=== PATIENT | female | born 1940 | race Caucasian/White ===

== ENCOUNTER 2022-03-08 19:06 | Emergency (ER) | payer MEDICARE, OTHER ==
[~2022-03-08] VITALS: Ht 167.6 cm; Wt 71.7 kg
--- NOTE | 2022-03-08 20:34 | NUR ---
bibpa from [facility] c/o lump on neck, need ct scan. patient vss, will continue to monitor.
--- NOTE | 2022-03-08 21:05 | NUR ---
CALLED DR. CARLOS, NO ANSWER
--- NOTE | 2022-03-08 21:06 | NUR ---
PAGED DR. CARLOS. NO ANSWER, [facility] [place]
--- NOTE | 2022-03-08 21:14 | NUR ---
CALLED DR. CARLOS NO ANSWER.
--- NOTE | 2022-03-08 21:44 | NUR ---
CALLYolande CARLOS NO ANSWER
--- NOTE | 2022-03-08 21:58 | NUR ---
REPORT GIVEN TO RHODA MAURICE
--- NOTE | 2022-03-08 22:00 | NUR ---
[facility] ETA 75-90 MINUTES
--- NOTE | 2022-03-08 22:47 | NUR ---
[facility] AT BEDSIDE FOR PT TRANSPORT BACK TO HER FACILITY. REPORT GIVEN TO [employer] ANALYST. PT IS IN STABLE CONDITION FOR TRANSPORT.
[2022-03-08 23:03] VITALS: BP 112/70
== END 2022-03-08 23:00 ==
LOC: ER 19:10
DX: R22.1 Localized swelling, mass and lump, neck (principal); J44.9 Chronic obstructive pulmonary disease, unspecified; F32.A Depression, unspecified; I10 Essential (primary) hypertension; D64.9 Anemia, unspecified
CPT/HCPCS: 70490-TC

== ENCOUNTER 2022-03-15 16:12 | Emergency (ER) | payer MEDICARE, OTHER ==
[~2022-03-15] VITALS: Ht 157.5 cm; Wt 68.0 kg
--- NOTE | 2022-03-15 16:18 | NUR ---
DOUGLAS PEREZ FROM [facility] SENT BY DR. CARLOS C/O NECK MASS X 1 WEEK. PT DENIES ANY PAIN OR SOB. PT PLACED IN BED, CONNECTED TO MONITOR. BREATHING EVEN AND UNLABORED. AAOX4. VSS. AWAITING MD ORDERS.
--- NOTE | 2022-03-15 16:19 | NUR ---
ATTEMPTED TO CALL DR. CARLOS REGARDING PT CLINICALS
--- NOTE | 2022-03-15 16:29 | NUR ---
DR MORENO AT BEDSIDE
--- NOTE | 2022-03-15 16:30 | NUR ---
Note undone in EDM - 03/15/22 at 1703 by JACKELYN Patient walked into the er c/o 5 days of dysuria, increased urinary frequency. She has not been on any antibiotics. She denies abdominal pain, fever, nausea, vomiting Pt also c/o psychiatric complaints. The patient states that over the last 10 months she has had fleeting suicidal ideations, paranoia, auditory hallucinations, and outbursts of anger have worsened and become more intense and frequent over the last 2 weeks. Pt states that she started seeing a psychiatrist last week but feels like she has not been helped. She states that is recent as yesterday she had thoughts of driving her car [place] a [place] to kill herself, she also states that she has cut her wrist in the past. Patient's paranoia is primarily believing that strangers is using her out to harm her. She denies alcohol, tobacco, illicit drug use. Pt ambulated to bed with steady gait, connected to the monitor. breathing even and unlabored. vss. awaiting md orders.
--- NOTE | 2022-03-15 16:32 | NUR ---
ESTABLISHED IV ACCESS 20G RIGHT HAND. BLOOD DRAWN AND SENT TO LAB.
[2022-03-15 17:15] LABS: BASOPHILS # (AUTO) 0.1 K/uL (0.0-0.2); EOSINOPHILS % (AUTO) 3.3 % (0.0-6.0); HEMATOCRIT 42 % (33-45); HEMOGLOBIN 13.5 g/dL (11.5-14.8); LYMPHOCYTES # (AUTO) 1.7 K/uL (0.8-4.8); LYMPHOCYTES % (AUTO) 26.7 % (20.0-44.0); MEAN CORPUSCULAR HGB CONC 33 g/dl (31.0-36.0); MEAN CORPUSCULAR VOLUME 96 fL (82-100); MONOCYTES # (AUTO) 0.5 K/uL (0.1-1.30); MONOCYTES % (AUTO) 8.3 % (2.0-12.0); NEUTROPHILS # (AUTO) 3.8 K/uL (1.8-8.9); NEUTROPHILS % (AUTO) 60.7 % (43.0-81.0); PLATELET COUNT (AUTO) 261 K/uL (150-450); RED BLOOD CELL COUNT(AUTO) 4.34 MIL/uL (4.0-5.2); WHITE BLOOD COUNT (AUTO) 6.3 K/uL (4.3-11.0)
[2022-03-15 17:38] LABS: CALCIUM, SERUM 9.1 mg/dL (8.5-10.1); CARBON DIOXIDE 25 mmol/L (21-32); CHLORIDE 108 mmol/L (98-107); CREATININE 1.4 mg/dL (0.6-1.3); GLUCOSE 100 mg/dL (74-106); POTASSIUM 3.7 mmol/L (3.5-5.1); SODIUM SERUM 139 mmol/L (136-145); UREA NITROGEN, BLOOD 28 mg/dL (7-18)
[2022-03-15 17:48] LABS: ALANINE AMINOTRANSFERASE 19 U/L (12-78); ALBUMIN 2.8 g/dL (3.4-5.0); ALKALINE PHOSPHATASE 67 U/L (46-116); ASPARTATE AMINOTRANSFERASE 19 U/L (15-37); BILIRUBIN,TOTAL 0.2 mg/dL (0.2-1.0); THYROID STIMULATING HORMONE 0.718 uIU/mL (0.358-3.74); TOTAL PROTEIN, SERUM 7.3 g/dL (6.4-8.2)
[2022-03-15] MEDS ORDERED: IV NS 0.9% 250 ML IV ONE (17:55)
[2022-03-15] MEDS ORDERED: CT SWABBABLE VALVE TRANS SET 1 EA INFUS.SET MC ONE (17:55)
[2022-03-15] MEDS ORDERED: IOHEXOL-300 100 ML VIAL IV ONE (17:55)
--- NOTE | 2022-03-15 18:15 | NUR ---
PT TAKEN TO CT VIA [facility]
--- NOTE | 2022-03-15 18:26 | NUR ---
BACK FROM CT
[2022-03-15] MEDS ORDERED: METR-147 PO (19:30)
[2022-03-15] MEDS ORDERED: CIPR500T5 PO (19:30)
--- NOTE | 2022-03-15 19:39 | NUR ---
[facility] CALLED FOR TRANSPORT. ETA 75-90 MINUTES.
--- NOTE | 2022-03-15 20:49 | NUR ---
AMBULANCE IN FACILITY, REPORT GIVEN. D/C INSTRUCTIONS GIVEN, IV REMOVED, LEFT IN STABLE CONDITION.
--- NOTE | 2022-03-15 20:49 | NUR ---
REPORT GIVEN TO RADHA DUONG SUP AT [facility]
[2022-03-15 21:51] VITALS: BP 122/61
== END 2022-03-15 21:52 ==
LOC: ER 16:14
DX: R22.1 Localized swelling, mass and lump, neck (principal); K57.32 Diverticulitis of large intestine without perforation or abscess without bleeding; J44.9 Chronic obstructive pulmonary disease, unspecified; F31.9 Bipolar disorder, unspecified; Z79.899 Other long term (current) drug therapy
CPT/HCPCS: 99285; 71260; 70491; 74177; 85025; 85652; 36415; 84439; 84443; 80053; 86140; 84481; J7050; Q9967

== ENCOUNTER 2023-06-26 02:04 | Inpatient (IN) | payer MEDICARE, OTHER ==
[~2023-06-26] VITALS: Ht 167.6 cm; Wt 54.4 kg
[~2023-06-26 02:04] MED LIST: CIPR500T5 PO; METR-147 PO
[2023-06-26 02:34] LABS: BASOPHILS # (AUTO) 0.1 K/uL (0.0-0.2); BASOPHILS % (AUTO) 0.6 % (0.0-2.0); EOSINOPHILS % (AUTO) 0.3 % (0.0-6.0); HEMATOCRIT 42 % (33-45); HEMOGLOBIN 13.9 g/dL (11.5-14.8); LYMPHOCYTES # (AUTO) 1.1 K/uL (0.8-4.8); LYMPHOCYTES % (AUTO) 11.6 % (20.0-44.0); MEAN CORPUSCULAR HEMOGLOBIN 31 PG (26.0-33.0); MEAN CORPUSCULAR HGB CONC 33 g/dl (31.0-36.0); MEAN CORPUSCULAR VOLUME 93 fL (82-100); MONOCYTES # (AUTO) 0.5 K/uL (0.1-1.30); MONOCYTES % (AUTO) 5.5 % (2.0-12.0); NEUTROPHILS # (AUTO) 7.8 K/uL (1.8-8.9); PLATELET COUNT (AUTO) 281 K/uL (150-450); RED BLOOD CELL COUNT(AUTO) 4.51 MIL/uL (4.0-5.2); RED CELL DISTRIBUTION WIDTH 15.4 % (11.5-15.0); WHITE BLOOD COUNT (AUTO) 9.5 K/uL (4.3-11.0)
[2023-06-26 02:42] LABS: CALCIUM, SERUM 8.9 mg/dL (8.5-10.1); CARBON DIOXIDE 24 mmol/L (21-32); CHLORIDE 110 mmol/L (98-107); GLUCOSE 125 mg/dL (74-106); POTASSIUM 4.2 mmol/L (3.5-5.1); SODIUM SERUM 143 mmol/L (136-145); UREA NITROGEN, BLOOD 21 mg/dL (7-18)
[2023-06-26 02:53] LABS: INR 0.97 (0.91-1.10); PROTHROMBIN TIME 10.3 SECS (9.2-11.1)
[2023-06-26 02:55] LABS: ALANINE AMINOTRANSFERASE 17 U/L (12-78); ALBUMIN 2.4 g/dL (3.4-5.0); ALKALINE PHOSPHATASE 77 U/L (46-116); ASPARTATE AMINOTRANSFERASE 10 U/L (15-37); BILIRUBIN,TOTAL 0.4 mg/dL (0.2-1.0); NT-PRO BNP 214 pg/mL (0-125); TOTAL PROTEIN, SERUM 6.8 g/dL (6.4-8.2)
[2023-06-26] MEDS ORDERED: ACETAMINOPHEN 325 MG TABLET PO PRN (04:30)
[2023-06-26] MEDS ORDERED: Z GUARD REMEDY 4 OZ OINT TP PRN (04:30)
[2023-06-26] MEDS ORDERED: MORPHINE SULFATE INJ 2 MG/ML DISP.SYRIN IV PRN ×2 (04:30→15:00)
[2023-06-26] MEDS ORDERED: MAGNESIUM HYDROXIDE 30 ML UDC PO PRN (04:30)
[2023-06-26] MEDS ORDERED: HYDROCODONE/APAP 10/325MG TABLET PO PRN (04:30)
[2023-06-26] MEDS ORDERED: ZOLPIDEM TARTRATE 5 MG TABLET PO PRN (04:30)
[2023-06-26 04:50] VITALS: BP 124/94; TEMP 99; O2SAT 95
[2023-06-26] MEDS: IV NS 0.9% 1,000 ML IV PRN (05:09)
[2023-06-26 08:00] VITALS: BP 141/93; TEMP 97.6; O2SAT 96
[2023-06-26] MEDS ORDERED: METO25TA6 PO (08:36)
[2023-06-26] MEDS ORDERED: MULT-225 PO (08:36)
[2023-06-26] MEDS ORDERED: CALC-494 PO (08:36)
[2023-06-26] MEDS ORDERED: NA P133E RC (08:36)
[2023-06-26] MEDS ORDERED: PYRI100T22 PO (08:36)
[2023-06-26] MEDS ORDERED: CRAN425C6 PO (08:36)
[2023-06-26] MEDS ORDERED: FERR325T24 PO (08:36)
[2023-06-26] MEDS ORDERED: CYAN500T9 PO (08:36)
[2023-06-26] MEDS ORDERED: BISA10SU11 RC (08:36)
[2023-06-26] MEDS ORDERED: AMIN30LI66 PO (08:36)
[2023-06-26] MEDS ORDERED: ACET325T53 PO (08:36)
[2023-06-26] MEDS ORDERED: OXYC5TAB3 PO (08:36)
[2023-06-26] MEDS ORDERED: DOCU100C36 PO (08:36)
[2023-06-26] MEDS ORDERED: MAGN400T8 PO (08:36)
[2023-06-26] MEDS ORDERED: LEVO75TA7 PO (08:36)
[2023-06-26] MEDS ORDERED: LIOT5TAB7 PO (08:36)
[2023-06-26] MEDS ORDERED: MAGN400O6 PO (08:36)
[2023-06-26 09:34] LABS: CHOLESTEROL 162 mg/dL (<200); HDL CHOLESTEROL 68 mg/dL (40-60); LDL 73 mg/dL (0-99); THYROID STIMULATING HORMONE < 0.007 uIU/mL (0.358-3.74); TRIGLYCERIDES 42 mg/dL (30-150)
[2023-06-26] MEDS ORDERED: VANCOMYCIN 1 GM VIAL ONE (10:07)
[2023-06-26] MEDS ORDERED: BUPIVACAINE 0.5 % PF 150 MG/30 ML VIAL ONE (10:07)
[2023-06-26] MEDS ORDERED: LABETALOL HCL IV 100MG VIAL ONE (13:23)
[2023-06-26 14:36] VITALS: BP 120/86; TEMP 97.8; O2SAT 98
[2023-06-26] MEDS: IV D5/0.45 NACL W/20 MEQ KCL 1L IV SCH (15:51)
[2023-06-26 16:00] VITALS: BP 124/84; TEMP 98.4; O2SAT 99
[2023-06-26 20:00] VITALS: BP 111/81; TEMP 98.8; O2SAT 95
[2023-06-26] MEDS: ANCEF 1 GM/50 ML D5W IV SCH (21:48)
[2023-06-27 07:15] LABS: BASOPHILS % (AUTO) 0.3 % (0.0-2.0); EOSINOPHILS % (AUTO) 0.3 % (0.0-6.0); HEMATOCRIT 35 % (33-45); HEMOGLOBIN 11.8 g/dL (11.5-14.8); LYMPHOCYTES # (AUTO) 1.7 K/uL (0.8-4.8); LYMPHOCYTES % (AUTO) 17.6 % (20.0-44.0); MEAN CORPUSCULAR HEMOGLOBIN 32 PG (26.0-33.0); MEAN CORPUSCULAR HGB CONC 34 g/dl (31.0-36.0); MEAN CORPUSCULAR VOLUME 94 fL (82-100); MONOCYTES # (AUTO) 0.9 K/uL (0.1-1.30); MONOCYTES % (AUTO) 9.6 % (2.0-12.0); NEUTROPHILS # (AUTO) 6.8 K/uL (1.8-8.9); NEUTROPHILS % (AUTO) 72.2 % (43.0-81.0); PLATELET COUNT (AUTO) 280 K/uL (150-450); RED BLOOD CELL COUNT(AUTO) 3.73 MIL/uL (4.0-5.2); RED CELL DISTRIBUTION WIDTH 15.6 % (11.5-15.0); WHITE BLOOD COUNT (AUTO) 9.4 K/uL (4.3-11.0)
[2023-06-27 07:58] LABS: CALCIUM, SERUM 8.2 mg/dL (8.5-10.1); CHLORIDE 109 mmol/L (98-107); CREATININE 1.2 mg/dL (0.6-1.3); GLUCOSE 118 mg/dL (74-106); MAGNESIUM 2.5 mg/dL (1.8-2.4); PHOSPHORUS 4.2 mg/dL (2.5-4.9); SODIUM SERUM 141 mmol/L (136-145); UREA NITROGEN, BLOOD 31 mg/dL (7-18)
[2023-06-27 08:00] VITALS: BP 126/90; TEMP 98.9; O2SAT 97
[2023-06-27 08:05] LABS: CARBON DIOXIDE 25 mmol/L (21-32)
[2023-06-27] MEDS: HYDROCODONE/APAP 10/325MG TABLET PO PRN (10:01)
[2023-06-27] MEDS ORDERED: CEFEPIME 2 GM in IV D5W 100 ML IV SCH (13:00)
[2023-06-27 14:11] LABS: *SPE A/G RATIO 0.8 (0.7-1.7); *SPE ALBUMIN 2.8 g/dL (2.9-4.4); *SPE ALPHA-1-GLOBULIN 0.3 g/dL (0.0-0.4); *SPE ALPHA-2-GLOBULIN 0.8 g/dL (0.4-1.0); *SPE BETA GLOBULIN 0.9 g/dL (0.7-1.3); *SPE GLOBULIN, TOTAL 3.4 g/dL (2.2-3.9); *SPE M-SPIKE Not Observed g/dL (Not Observed); *SPE PROTEIN TOTAL 6.2 g/dL (6.0-8.5); *SPEGAMMA GLOBULIN 1.4 g/dL (0.4-1.8)
[2023-06-27] MEDS: CEFEPIME 1 GM in IV D5W 50 ML IV SCH (14:25)
[2023-06-27 16:00] VITALS: BP 123/82; TEMP 98.2; O2SAT 96
[2023-06-27 20:00] VITALS: BP 137/89; TEMP 97.5; O2SAT 95
[2023-06-27] MEDS: IV 1/2NS 1000 ML 1,000 ML IV PRN (21:15)
[2023-06-28 07:00] VITALS: BP 124/77; TEMP 98.2; O2SAT 96
[2023-06-28 16:00] VITALS: BP 130/78; TEMP 98.1; O2SAT 94
[2023-06-28] MEDS: ONDANSETRON HCL/PF 4 MG/2 ML VIAL IVP PRN (18:04)
[2023-06-28 20:00] VITALS: BP 149/96; TEMP 97.9; O2SAT 97
[2023-06-28] MEDS: MAG HYDROX/AL HYDROX/SIMETH 30 ML UDC PO PRN (20:15)
[2023-06-29 07:00] VITALS: BP 136/81; TEMP 98.4; O2SAT 95
[2023-06-29] MEDS: PROCHLORPERAZINE MALEATE 10 MG TABLET PO PRN (13:32)
[2023-06-29 16:08] VITALS: BP 119/83; TEMP 98.4; O2SAT 94
[2023-06-29 20:00] VITALS: BP 124/75; TEMP 98.2; O2SAT 93
[2023-06-30 07:00] VITALS: BP 117/70; TEMP 98.4; O2SAT 94
[2023-06-30 16:00] VITALS: BP 143/83; TEMP 98.4; O2SAT 96
[2023-06-30 20:00] VITALS: BP 117/71; TEMP 98.4; O2SAT 94
[2023-06-30] MEDS: MUPIROCIN OINT 2% 22 GM TUBE NS SCH (20:23)
[2023-07-01 07:30] VITALS: BP 142/81; TEMP 98.2; O2SAT 96
[2023-07-01] MEDS ORDERED: SULF1TAB48 PO (12:25)
[2023-07-01] MEDS ORDERED: HEPA500014 IJ (12:25)
[2023-07-01] MEDS ORDERED: CIPR-262 PO (12:28)
[2023-07-01] MEDS ORDERED: METR500T PO (12:28)
[2023-07-01] MEDS: HEPARIN SODIUM, PORCINE 5000 UNITS/1 ML VIAL SQ SCH (12:30)
[2023-07-01 16:00] VITALS: BP 133/80; TEMP 98.6; O2SAT 95
== END 2023-07-01 19:56 | DRG 481 ==
LOC: ER 02:07 → MED 03:43
PROVIDERS: ATTEND Internal Medicine
PROC: 0QS606Z Reposition Right Upper Femur with Intramedullary Internal Fixation Device, Open Approach (ICD-10-PCS; principal; 2023-06-26)
DX: S72.141A Displaced intertrochanteric fracture of right femur, initial encounter for closed fracture (principal); E44.0 Moderate protein-calorie malnutrition; N30.00 Acute cystitis without hematuria; N32.1 Vesicointestinal fistula; Z68.1 Body mass index [BMI] 19.9 or less, adult; K57.20 Diverticulitis of large intestine with perforation and abscess without bleeding; J44.9 Chronic obstructive pulmonary disease, unspecified; W01.0XXA Fall on same level from slipping, tripping and stumbling without subsequent striking against object, initial encounter; Z85.850 Personal history of malignant neoplasm of thyroid; K27.9 Peptic ulcer, site unspecified, unspecified as acute or chronic, without hemorrhage or perforation; E88.09 Other disorders of plasma-protein metabolism, not elsewhere classified; F31.9 Bipolar disorder, unspecified; I10 Essential (primary) hypertension; R22.1 Localized swelling, mass and lump, neck; W19.XXXA Unspecified fall, initial encounter; Y93.9 Activity, unspecified; Y92.129 Unspecified place in nursing home as the place of occurrence of the external cause; D64.9 Anemia, unspecified; N21.0 Calculus in bladder
CPT/HCPCS: 36415; 71045-TC; 72192-TC; 73502; 80048-TC; 80053-TC; 80061-TC; 83735-TC; 83880; 84100-TC; 84155; 84165; 84439-TC; 84443-TC; 84484-TC; 85025-TC; 85610-TC; 87081-TC; 87086-TC; 93307-TC; 97110-TC; 97112-TC; 97530-TC; 97535-TC; A4223; A6209; A6403; C1713; G0378; J0461; J0690; J0692; J1885; J2405; J2704; J3370; J3480; J3490; J7030; J7040; J7050; J7060; Q0164

== ENCOUNTER 2023-07-06 13:57 | Inpatient (IN) | payer MEDICARE, OTHER ==
[~2023-07-06] VITALS: Ht 167.6 cm; Wt 62.1 kg
[~2023-07-06 13:57] MED LIST changes: +ACET325T53 PO; +AMIN30LI66 PO; +BISA10SU11 RC; +CALC-494 PO; +CIPR-262 PO; -CIPR500T5 PO; +CRAN425C6 PO; +CYAN500T9 PO; +DOCU100C36 PO; +FERR325T24 PO; +HEPA500014 IJ; +LEVO75TA7 PO; +LIOT5TAB7 PO; +MAGN400O6 PO; +MAGN400T8 PO; +METO25TA6 PO; -METR-147 PO; +METR500T PO; +MULT-225 PO; +NA P133E RC; +OXYC5TAB3 PO; +PYRI100T22 PO
[2023-07-06 14:28] LABS: BASOPHILS # (AUTO) 0.1 K/uL (0.0-0.2); BASOPHILS % (AUTO) 0.4 % (0.0-2.0); EOSINOPHILS % (AUTO) 0.2 % (0.0-6.0); HEMATOCRIT 30 % (33-45); HEMOGLOBIN 9.9 g/dL (11.5-14.8); LYMPHOCYTES % (AUTO) 5.4 % (20.0-44.0); MEAN CORPUSCULAR HEMOGLOBIN 32 PG (26.0-33.0); MEAN CORPUSCULAR HGB CONC 33 g/dl (31.0-36.0); MEAN CORPUSCULAR VOLUME 98 fL (82-100); MONOCYTES # (AUTO) 0.9 K/uL (0.1-1.30); MONOCYTES % (AUTO) 4.9 % (2.0-12.0); NEUTROPHILS % (AUTO) 89.1 % (43.0-81.0); PLATELET COUNT (AUTO) 470 K/uL (150-450); RED BLOOD CELL COUNT(AUTO) 3.09 MIL/uL (4.0-5.2); RED CELL DISTRIBUTION WIDTH 16.8 % (11.5-15.0); WHITE BLOOD COUNT (AUTO) 17.9 K/uL (4.3-11.0)
[2023-07-06 14:47] LABS: CALCIUM, SERUM 8.3 mg/dL (8.5-10.1); CARBON DIOXIDE 23 mmol/L (21-32); CHLORIDE 109 mmol/L (98-107); CREATININE 0.8 mg/dL (0.6-1.3); GLUCOSE 122 mg/dL (74-106); INR 1.08 (0.91-1.10); PARTIAL THROMBOPLASTIN TIME 27.2 SEC (24.3-34.3); POTASSIUM 4.2 mmol/L (3.5-5.1); PROTHROMBIN TIME 11.4 SECS (9.2-11.1); SODIUM SERUM 140 mmol/L (136-145); UREA NITROGEN, BLOOD 24 mg/dL (7-18)
[2023-07-06 14:53] LABS: LACTIC ACID 1.7 mmol/L (0.4-2.0)
[2023-07-06 15:00] LABS: ALANINE AMINOTRANSFERASE 27 U/L (12-78); ALBUMIN 1.6 g/dL (3.4-5.0); ALKALINE PHOSPHATASE 72 U/L (46-116); ASPARTATE AMINOTRANSFERASE 32 U/L (15-37); BILIRUBIN,DIRECT 0.2 mg/dL (0.0-0.2); BILIRUBIN,TOTAL 0.5 mg/dL (0.2-1.0); TOTAL PROTEIN, SERUM 5.4 g/dL (6.4-8.2)
[2023-07-06] MEDS ORDERED: POVI3780 TP (15:09)
[2023-07-06] MEDS ORDERED: HEPA500039 SQ (15:09)
[2023-07-06] MEDS ORDERED: ACET-868 PO (15:09)
[2023-07-06] MEDS ORDERED: ONDA-97 PO (15:09)
[2023-07-06] MEDS ORDERED: ASCO-340 PO (15:09)
[2023-07-06] MEDS ORDERED: MUPI22OI7 BNOSTRILS (15:09)
[2023-07-06] MEDS ORDERED: ZINC1CAP2 PO (15:09)
[2023-07-06] MEDS ORDERED: ALLA266C2 TP (15:09)
[2023-07-06 15:31] LABS: APPEARANCE,URINE Clear (CLEAR); BILIRUBIN,URINE SMALL (NEGATIVE); BLOOD, URINE Moderate Ery/uL (NEGATIVE); COLOR,URINE YELLOW (YELLOW); KETONES,URINE Negative (NEGATIVE); LEUKOCYTE ESTERASE ,URINE Large (NEGATIVE); NITRITE, URINE Positive (NEGATIVE); PROTEIN,URINE 30 mg/dl (NEGATIVE); UGLUCOSE Negative (NEGATIVE); UROBILINOGEN,URINE 0.2 EU/dL (0.2)
[2023-07-06 15:45] LABS: ADD URINE CULTURE YES; BACTERIA,URINE 2+ /HPF (None Seen); SQUAMOUS EPITHELIAL CELL,UR Few /HPF (None Seen); WBC,URINE TOO NUMEROUS TO COUN /HPF (0-3)
[2023-07-06 15:46] LABS: HYALINE CASTS, URINE Few /LPF (None Seen)
[2023-07-06] MEDS ORDERED: CEFTRIAXONE 1GM BAG (ER ONLY) 50 ML IV ONE (16:04)
[2023-07-06] MEDS: CEFTRIAXONE 1GM BAG (ER ONLY) 1 GM/50 ML PIGGYBACK IV ONE (16:10)
[2023-07-06] MEDS ORDERED: ONDANSETRON HCL/PF 4 MG/2 ML VIAL IVP PRN (19:00)
[2023-07-06] MEDS ORDERED: ACETAMINOPHEN 325 MG TABLET PO PRN ×2 (19:00)
[2023-07-06] MEDS ORDERED: Z GUARD REMEDY 4 OZ OINT TP PRN (19:00)
[2023-07-06] MEDS ORDERED: MAG HYDROX/AL HYDROX/SIMETH 30 ML UDC PO PRN (19:00)
[2023-07-06] MEDS ORDERED: MAGNESIUM HYDROXIDE 30 ML UDC PO PRN ×2 (19:00)
[2023-07-06] MEDS ORDERED: NA PHOS,M-B/NA PHOS,DI-BA 1 EA ENEMA RC PRN (19:00)
[2023-07-06] MEDS ORDERED: BISACODYL SUPP (10 MG) 10 MG/SUPP.RECT SUPP.RECT RC PRN (19:00)
[2023-07-06 20:00] VITALS: BP 119/73; TEMP 99.1; O2SAT 95
[2023-07-06] MEDS ORDERED: oxyCODONE IR immediate release 5 MG TABLET PO PRN (20:00)
[2023-07-06] MEDS: HEPARIN SODIUM, PORCINE 5000 UNITS/1 ML VIAL SQ SCH (20:53)
[2023-07-07] MEDS: IV NS 0.9% 1,000 ML IV PRN (02:33)
[2023-07-07 04:00] VITALS: BP 120/68; TEMP 98.6; O2SAT 94
[2023-07-07] MEDS ORDERED: PIPERACILLIN /TAZOBACTAM 3.375 G in IV D5W 50 ML IV SCH ×2 (05:00→22:00)
[2023-07-07 05:07] VITALS: BP 120/68; TEMP 98.6; O2SAT 94
[2023-07-07 06:30] LABS: BASOPHILS % (AUTO) 0.1 % (0.0-2.0); EOSINOPHILS # (AUTO) 0.1 K/uL (0.0-0.7); EOSINOPHILS % (AUTO) 0.4 % (0.0-6.0); HEMATOCRIT 27 % (33-45); HEMOGLOBIN 8.6 g/dL (11.5-14.8); LYMPHOCYTES # (AUTO) 1.3 K/uL (0.8-4.8); LYMPHOCYTES % (AUTO) 8.9 % (20.0-44.0); MEAN CORPUSCULAR HEMOGLOBIN 32 PG (26.0-33.0); MEAN CORPUSCULAR HGB CONC 32 g/dl (31.0-36.0); MEAN CORPUSCULAR VOLUME 100 fL (82-100); MONOCYTES # (AUTO) 0.9 K/uL (0.1-1.30); NEUTROPHILS # (AUTO) 12.2 K/uL (1.8-8.9); NEUTROPHILS % (AUTO) 84.6 % (43.0-81.0); PLATELET COUNT (AUTO) 398 K/uL (150-450); RED BLOOD CELL COUNT(AUTO) 2.69 MIL/uL (4.0-5.2); RED CELL DISTRIBUTION WIDTH 16.8 % (11.5-15.0); WHITE BLOOD COUNT (AUTO) 14.4 K/uL (4.3-11.0)
[2023-07-07 07:10] LABS: CREATININE 0.9 mg/dL (0.6-1.3); MAGNESIUM 2.1 mg/dL (1.8-2.4); PHOSPHORUS 2.4 mg/dL (2.5-4.9); POTASSIUM 4.1 mmol/L (3.5-5.1)
[2023-07-07] MEDS: PIPERACILLIN /TAZOBACTAM 3.375 G in IV D5W 50 ML IV SCH (08:13)
[2023-07-07] MEDS: LEVOTHYROXINE SODIUM 75 MCG TABLET PO ONE (09:30)
[2023-07-07] MEDS: LEVOTHYROXINE SODIUM 75 MCG TABLET PO SCH (09:42)
[2023-07-07] MEDS: LIOTHYRONINE SODIUM (5 MCG/TA 5 MCG TABLET PO SCH (09:43)
[2023-07-07] MEDS: FERROUS SULFATE (325 MG) 325 MG/TAB TABLET PO SCH (09:44)
[2023-07-07] MEDS: METOPROLOL TARTRATE 25 MG TABLET PO SCH (09:49)
[2023-07-07] MEDS: PIPERACILLIN /TAZOBACTAM 3.375 G in IV D5W 100 ML IV SCH (10:20)
[2023-07-07] MEDS: K PHOS NEUTRAL 250 MG TABLET PO ONE (15:30)
[2023-07-07] MEDS ORDERED: CEFTRIAXONE 1 G in IV D5W 50 ML IV SCH (16:00)
[2023-07-07] MEDS: DOCUSATE SODIUM 100 MG CAPSULE PO SCH (17:18)
[2023-07-07] MEDS: CYANOCOBALAMIN 500 MCG TABLET PO SCH (17:18)
[2023-07-07] MEDS: MAGNESIUM OXIDE 400 MG TABLET PO SCH (17:18)
[2023-07-07 20:00] VITALS: BP 126/78; TEMP 98.4; O2SAT 93
[2023-07-07 21:00] VITALS: BP 126/78; TEMP 98.4
[2023-07-08 05:00] VITALS: BP 99/55; TEMP 98.5; O2SAT 99
[2023-07-08 11:13] LABS: BASOPHILS % (AUTO) 0.1 % (0.0-2.0); EOSINOPHILS # (AUTO) 0.1 K/uL (0.0-0.7); EOSINOPHILS % (AUTO) 0.4 % (0.0-6.0); HEMATOCRIT 26 % (33-45); HEMOGLOBIN 8.4 g/dL (11.5-14.8); LYMPHOCYTES # (AUTO) 1.1 K/uL (0.8-4.8); LYMPHOCYTES % (AUTO) 8.4 % (20.0-44.0); MEAN CORPUSCULAR HEMOGLOBIN 33 PG (26.0-33.0); MEAN CORPUSCULAR HGB CONC 33 g/dl (31.0-36.0); MEAN CORPUSCULAR VOLUME 100 fL (82-100); MONOCYTES # (AUTO) 0.6 K/uL (0.1-1.30); NEUTROPHILS # (AUTO) 11.2 K/uL (1.8-8.9); NEUTROPHILS % (AUTO) 86.1 % (43.0-81.0); PLATELET COUNT (AUTO) 398 K/uL (150-450); RED BLOOD CELL COUNT(AUTO) 2.56 MIL/uL (4.0-5.2)
[2023-07-08 11:22] LABS: CALCIUM, SERUM 7.4 mg/dL (8.5-10.1); CREATININE 0.8 mg/dL (0.6-1.3); POTASSIUM 3.9 mmol/L (3.5-5.1)
[2023-07-08 16:00] VITALS: BP 130/79; TEMP 97.7; O2SAT 99
[2023-07-09] VITALS: BP 116/77; TEMP 98; O2SAT 95
[2023-07-09 07:03] LABS: CALCIUM, SERUM 7.2 mg/dL (8.5-10.1); CREATININE 0.8 mg/dL (0.6-1.3); PHOSPHORUS 3.2 mg/dL (2.5-4.9); POTASSIUM 3.5 mmol/L (3.5-5.1)
[2023-07-09 07:26] LABS: BASOPHILS % (AUTO) 0.3 % (0.0-2.0); EOSINOPHILS # (AUTO) 0.1 K/uL (0.0-0.7); EOSINOPHILS % (AUTO) 0.9 % (0.0-6.0); HEMATOCRIT 27 % (33-45); HEMOGLOBIN 8.9 g/dL (11.5-14.8); LYMPHOCYTES # (AUTO) 1.2 K/uL (0.8-4.8); LYMPHOCYTES % (AUTO) 10.8 % (20.0-44.0); MEAN CORPUSCULAR HEMOGLOBIN 33 PG (26.0-33.0); MEAN CORPUSCULAR HGB CONC 33 g/dl (31.0-36.0); MEAN CORPUSCULAR VOLUME 100 fL (82-100); MONOCYTES # (AUTO) 0.5 K/uL (0.1-1.30); MONOCYTES % (AUTO) 5.1 % (2.0-12.0); NEUTROPHILS # (AUTO) 8.9 K/uL (1.8-8.9); NEUTROPHILS % (AUTO) 82.9 % (43.0-81.0); PLATELET COUNT (AUTO) 416 K/uL (150-450); RED BLOOD CELL COUNT(AUTO) 2.69 MIL/uL (4.0-5.2); RED CELL DISTRIBUTION WIDTH 21.6 % (11.5-15.0); WHITE BLOOD COUNT (AUTO) 10.7 K/uL (4.3-11.0)
[2023-07-09 08:15] VITALS: BP 123/75; TEMP 98.5; O2SAT 99
[2023-07-09 16:02] VITALS: BP 130/79; TEMP 97.7; O2SAT 99
[2023-07-10] VITALS: BP 119/49; TEMP 96.6; O2SAT 95
[2023-07-10 06:18] LABS: BASOPHILS % (AUTO) 0.2 % (0.0-2.0); EOSINOPHILS % (AUTO) 0.1 % (0.0-6.0); HEMATOCRIT 27 % (33-45); HEMOGLOBIN 8.9 g/dL (11.5-14.8); LYMPHOCYTES # (AUTO) 0.7 K/uL (0.8-4.8); LYMPHOCYTES % (AUTO) 5.6 % (20.0-44.0); MEAN CORPUSCULAR HEMOGLOBIN 33 PG (26.0-33.0); MEAN CORPUSCULAR HGB CONC 33 g/dl (31.0-36.0); MEAN CORPUSCULAR VOLUME 100 fL (82-100); MONOCYTES # (AUTO) 0.6 K/uL (0.1-1.30); MONOCYTES % (AUTO) 4.5 % (2.0-12.0); NEUTROPHILS # (AUTO) 11.4 K/uL (1.8-8.9); NEUTROPHILS % (AUTO) 89.6 % (43.0-81.0); PLATELET COUNT (AUTO) 438 K/uL (150-450); RED BLOOD CELL COUNT(AUTO) 2.73 MIL/uL (4.0-5.2); RED CELL DISTRIBUTION WIDTH 19.3 % (11.5-15.0); WHITE BLOOD COUNT (AUTO) 12.7 K/uL (4.3-11.0)
[2023-07-10 06:39] LABS: CREATININE 0.9 mg/dL (0.6-1.3); PHOSPHORUS 3.2 mg/dL (2.5-4.9); POTASSIUM 3.4 mmol/L (3.5-5.1)
[2023-07-10 06:52] LABS: MAGNESIUM 1.9 mg/dL (1.8-2.4)
[2023-07-10 08:32] VITALS: BP 126/78; TEMP 98.4
[2023-07-10] MEDS: POTASSIUM CHLORIDE 20 MEQ TAB.PRT.SR PO ONE (09:38)
[2023-07-10 17:54] VITALS: BP 123/75; TEMP 98.5; O2SAT 99
[2023-07-10 20:00] VITALS: BP 132/78; TEMP 98.5; O2SAT 95
[2023-07-11 04:00] VITALS: BP_SYST 120; BP_SYST 132; BP_DIAS 75; BP_DIAS 78; TEMP 98; O2SAT 96
[2023-07-11 06:45] LABS: BASOPHILS % (AUTO) 0.4 % (0.0-2.0); EOSINOPHILS % (AUTO) 0.4 % (0.0-6.0); HEMATOCRIT 26 % (33-45); HEMOGLOBIN 8.6 g/dL (11.5-14.8); LYMPHOCYTES % (AUTO) 9.4 % (20.0-44.0); MEAN CORPUSCULAR HEMOGLOBIN 33 PG (26.0-33.0); MEAN CORPUSCULAR HGB CONC 34 g/dl (31.0-36.0); MEAN CORPUSCULAR VOLUME 100 fL (82-100); MONOCYTES # (AUTO) 0.5 K/uL (0.1-1.30); MONOCYTES % (AUTO) 4.8 % (2.0-12.0); NEUTROPHILS # (AUTO) 9.2 K/uL (1.8-8.9); PLATELET COUNT (AUTO) 421 K/uL (150-450); RED BLOOD CELL COUNT(AUTO) 2.57 MIL/uL (4.0-5.2); RED CELL DISTRIBUTION WIDTH 21.1 % (11.5-15.0); WHITE BLOOD COUNT (AUTO) 10.8 K/uL (4.3-11.0)
[2023-07-11 07:01] LABS: CALCIUM, SERUM 7.6 mg/dL (8.5-10.1); CARBON DIOXIDE 24 mmol/L (21-32); CHLORIDE 111 mmol/L (98-107); CREATININE 0.8 mg/dL (0.6-1.3); GLUCOSE 90 mg/dL (74-106); MAGNESIUM 2.1 mg/dL (1.8-2.4); PHOSPHORUS 2.6 mg/dL (2.5-4.9); POTASSIUM 3.1 mmol/L (3.5-5.1); SODIUM SERUM 143 mmol/L (136-145); UREA NITROGEN, BLOOD 13 mg/dL (7-18)
[2023-07-11 08:00] VITALS: BP 125/76; TEMP 96; O2SAT 96
[2023-07-11 08:34] VITALS: BP 125/75
[2023-07-11] MEDS: POTASSIUM CHLORIDE 20 MEQ TAB.PRT.SR PO SCH (10:34)
== END 2023-07-11 16:19 | DRG 689 ==
LOC: ER 14:00 → TELE-TD 17:42 → TELE1 17:58 → MEDSG1 19:42
PROVIDERS: ADMIT Internal Medicine; ATTEND Internal Medicine
DX: N39.0 Urinary tract infection, site not specified (principal); E43 Unspecified severe protein-calorie malnutrition; G93.41 Metabolic encephalopathy; N32.1 Vesicointestinal fistula; K57.32 Diverticulitis of large intestine without perforation or abscess without bleeding; K44.9 Diaphragmatic hernia without obstruction or gangrene; J44.9 Chronic obstructive pulmonary disease, unspecified; Z87.11 Personal history of peptic ulcer disease; D63.8 Anemia in other chronic diseases classified elsewhere; E03.9 Hypothyroidism, unspecified; E88.09 Other disorders of plasma-protein metabolism, not elsewhere classified; I10 Essential (primary) hypertension; Z87.440 Personal history of urinary (tract) infections; D72.829 Elevated white blood cell count, unspecified; B96.20 Unspecified Escherichia coli [E. coli] as the cause of diseases classified elsewhere; Z68.22 Body mass index [BMI] 22.0-22.9, adult; F31.9 Bipolar disorder, unspecified; Z98.890 Other specified postprocedural states
CPT/HCPCS: 36415; 71045-TC; 80048-TC; 80076-TC; 81001; 83605-TC; 83735-TC; 84100-TC; 84484-TC; 85025-TC; 85730-TC; 87040-TC; 87081-TC; 87086-TC; G0378; J0696; J1644; J2543; J7030; J7060

== ENCOUNTER 2023-07-24 17:25 | Inpatient (IN) | payer MEDICARE, OTHER ==
[~2023-07-24] VITALS: Ht 167.6 cm; Wt 51.7 kg
[~2023-07-24 17:25] MED LIST changes: +ACET-868 PO; +ALLA266C2 TP; +ASCO-340 PO; -CIPR-262 PO; -HEPA500014 IJ; +HEPA500039 SQ; -METR500T PO; +MUPI22OI7 BNOSTRILS; +ONDA-97 PO; +POVI3780 TP; -PYRI100T22 PO; +ZINC1CAP2 PO
[2023-07-24] MEDS ORDERED: COLLAGEN POWDER TP (18:16)
[2023-07-24] MEDS ORDERED: FURO-144 PO (18:16)
[2023-07-24 18:18] LABS: BASOPHILS # (AUTO) 0.1 K/uL (0.0-0.2); BASOPHILS % (AUTO) 1.2 % (0.0-2.0); EOSINOPHILS # (AUTO) 0.1 K/uL (0.0-0.7); EOSINOPHILS % (AUTO) 1.8 % (0.0-6.0); HEMATOCRIT 36 % (33-45); HEMOGLOBIN 11.6 g/dL (11.5-14.8); LYMPHOCYTES # (AUTO) 1.1 K/uL (0.8-4.8); LYMPHOCYTES % (AUTO) 21.4 % (20.0-44.0); MEAN CORPUSCULAR HEMOGLOBIN 33 PG (26.0-33.0); MEAN CORPUSCULAR HGB CONC 32 g/dl (31.0-36.0); MEAN CORPUSCULAR VOLUME 103 fL (82-100); MONOCYTES # (AUTO) 0.5 K/uL (0.1-1.30); MONOCYTES % (AUTO) 9.4 % (2.0-12.0); NEUTROPHILS # (AUTO) 3.4 K/uL (1.8-8.9); NEUTROPHILS % (AUTO) 66.2 % (43.0-81.0); PLATELET COUNT (AUTO) 372 K/uL (150-450); RED BLOOD CELL COUNT(AUTO) 3.47 MIL/uL (4.0-5.2); RED CELL DISTRIBUTION WIDTH 22.3 % (11.5-15.0); WHITE BLOOD COUNT (AUTO) 5.1 K/uL (4.3-11.0)
[2023-07-24 18:30] LABS: CALCIUM, SERUM 8.5 mg/dL (8.5-10.1); CARBON DIOXIDE 32 mmol/L (21-32); CHLORIDE 106 mmol/L (98-107); CREATININE 0.6 mg/dL (0.6-1.3); GLUCOSE 102 mg/dL (74-106); POTASSIUM 3.5 mmol/L (3.5-5.1); SODIUM SERUM 142 mmol/L (136-145); UREA NITROGEN, BLOOD 13 mg/dL (7-18)
[2023-07-24] MEDS: IV NS 0.9% 1,000 ML BAG IV ONE (18:31)
[2023-07-24 18:33] LABS: INR 1.03 (0.91-1.10); PROTHROMBIN TIME 10.6 SECS (9.2-11.1)
[2023-07-24 18:35] LABS: PARTIAL THROMBOPLASTIN TIME 19.8 SEC (24.3-34.3)
[2023-07-24 18:36] LABS: ALANINE AMINOTRANSFERASE 19 U/L (12-78); ALBUMIN 1.9 g/dL (3.4-5.0); ALKALINE PHOSPHATASE 170 U/L (46-116); ASPARTATE AMINOTRANSFERASE 43 U/L (15-37); BILIRUBIN,DIRECT 0.1 mg/dL (0.0-0.2); BILIRUBIN,TOTAL 0.8 mg/dL (0.2-1.0); LIPASE 45 U/L (16-77); TOTAL PROTEIN, SERUM 6.2 g/dL (6.4-8.2)
[2023-07-24 21:45] VITALS: BP 120/74; TEMP 98.2; O2SAT 96
[2023-07-24] MEDS ORDERED: ONDANSETRON HCL/PF 4 MG/2 ML VIAL IVP PRN (23:30)
[2023-07-24] MEDS ORDERED: MAGNESIUM HYDROXIDE 30 ML UDC PO PRN (23:30)
[2023-07-24] MEDS ORDERED: MAG HYDROX/AL HYDROX/SIMETH 30 ML UDC PO PRN (23:30)
[2023-07-24] MEDS ORDERED: Z GUARD REMEDY 4 OZ OINT TP PRN (23:30)
[2023-07-24] MEDS ORDERED: ACETAMINOPHEN 325 MG TABLET PO PRN (23:30)
[2023-07-24] MEDS ORDERED: ZOLPIDEM TARTRATE 5 MG TABLET PO PRN (23:30)
[2023-07-25] MEDS: IV D5/0.45 NACL 1,000 ML IV PRN (00:11)
[2023-07-25] MEDS: ENOXAPARIN SODIUM 40 MG/0.4 ML DISP.SYRIN SQ SCH (00:12)
[2023-07-25 06:52] LABS: EOSINOPHILS # (AUTO) 0.3 K/uL (0.0-0.7); EOSINOPHILS % (AUTO) 6.4 % (0.0-6.0); HEMATOCRIT 29 % (33-45); HEMOGLOBIN 9.6 g/dL (11.5-14.8); LYMPHOCYTES # (AUTO) 1.1 K/uL (0.8-4.8); LYMPHOCYTES % (AUTO) 24.5 % (20.0-44.0); MEAN CORPUSCULAR HEMOGLOBIN 35 PG (26.0-33.0); MEAN CORPUSCULAR HGB CONC 33 g/dl (31.0-36.0); MEAN CORPUSCULAR VOLUME 104 fL (82-100); MONOCYTES # (AUTO) 0.6 K/uL (0.1-1.30); MONOCYTES % (AUTO) 13.6 % (2.0-12.0); NEUTROPHILS # (AUTO) 2.5 K/uL (1.8-8.9); NEUTROPHILS % (AUTO) 55.5 % (43.0-81.0); PLATELET COUNT (AUTO) 295 K/uL (150-450); RED BLOOD CELL COUNT(AUTO) 2.78 MIL/uL (4.0-5.2); RED CELL DISTRIBUTION WIDTH 22.3 % (11.5-15.0); WHITE BLOOD COUNT (AUTO) 4.5 K/uL (4.3-11.0)
[2023-07-25 06:58] LABS: INR 1.13 (0.91-1.10); PROTHROMBIN TIME 11.9 SECS (9.2-11.1)
[2023-07-25 07:16] LABS: BILIRUBIN,DIRECT 0.2 mg/dL (0.0-0.2); BILIRUBIN,TOTAL 0.5 mg/dL (0.2-1.0); CALCIUM, SERUM 7.6 mg/dL (8.5-10.1); CREATININE 0.6 mg/dL (0.6-1.3); MAGNESIUM 2.1 mg/dL (1.8-2.4); PHOSPHORUS 2.3 mg/dL (2.5-4.9)
[2023-07-25 07:30] LABS: ALBUMIN 1.4 g/dL (3.4-5.0); THYROID STIMULATING HORMONE 3.05 uIU/mL (0.358-3.74)
[2023-07-25 07:31] LABS: POTASSIUM 2.7 mmol/L (3.5-5.1)
[2023-07-25] MEDS: PANTOPRAZOLE 40 MG VIAL IV SCH (08:14)
[2023-07-25 09:18] LABS: BASOPHILS # (AUTO) 0.1 K/uL (0.0-0.2); BASOPHILS % (AUTO) 1.3 % (0.0-2.0); EOSINOPHILS # (AUTO) 0.1 K/uL (0.0-0.7); EOSINOPHILS % (AUTO) 3.1 % (0.0-6.0); HEMATOCRIT 31 % (33-45); LYMPHOCYTES % (AUTO) 25.8 % (20.0-44.0); MEAN CORPUSCULAR HEMOGLOBIN 34 PG (26.0-33.0); MEAN CORPUSCULAR HGB CONC 32 g/dl (31.0-36.0); MEAN CORPUSCULAR VOLUME 104 fL (82-100); MONOCYTES # (AUTO) 0.4 K/uL (0.1-1.30); MONOCYTES % (AUTO) 11.1 % (2.0-12.0); NEUTROPHILS # (AUTO) 2.4 K/uL (1.8-8.9); NEUTROPHILS % (AUTO) 58.7 % (43.0-81.0); PLATELET COUNT (AUTO) 294 K/uL (150-450); RED BLOOD CELL COUNT(AUTO) 2.94 MIL/uL (4.0-5.2); RED CELL DISTRIBUTION WIDTH 22.4 % (11.5-15.0)
[2023-07-25 09:35] LABS: BILIRUBIN,TOTAL 0.5 mg/dL (0.2-1.0); CALCIUM, SERUM 7.9 mg/dL (8.5-10.1); CREATININE 0.6 mg/dL (0.6-1.3)
[2023-07-25 09:50] LABS: ALBUMIN 1.4 g/dL (3.4-5.0); POTASSIUM 2.6 mmol/L (3.5-5.1)
[2023-07-25] MEDS: POTASSIUM CL. PREMIX PERIPHER. 50 ML IV SCH (10:31)
[2023-07-25] MEDS: K PHOS NEUTRAL 250 MG TABLET PO ONE (15:30)
[2023-07-25 16:00] VITALS: BP 122/85; TEMP 98.2; O2SAT 96
[2023-07-25] MEDS: CALCIUM CARBONATE 500 MG TAB.CHEW PO SCH (16:34)
[2023-07-25] MEDS: FERROUS SULFATE (325 MG) 325 MG/TAB TABLET PO SCH (16:34)
[2023-07-25] MEDS: PROSOURCE / PROSTAT (PYXIS) 30 ML UDC PO SCH (16:39)
[2023-07-25] MEDS: DOCUSATE SODIUM 100 MG CAPSULE PO SCH (17:00)
[2023-07-25] MEDS: MULTIVITAMINS,THERAGRAN 1 UDTAB TABLET PO SCH (17:01)
[2023-07-25] MEDS: ASCORBIC ACID 500 MG TABLET PO SCH (17:01)
[2023-07-25] MEDS: CYANOCOBALAMIN 500 MCG TABLET PO SCH (17:01)
[2023-07-25] MEDS ORDERED: Medication Not On Formulary EA (Cranberry Extract (Cranberry) 425 MG) PO SCH (18:00)
[2023-07-25 20:13] VITALS: BP 139/97; TEMP 98.2; O2SAT 82
[2023-07-25 20:15] VITALS: BP 142/91; TEMP 97.5; O2SAT 97
[2023-07-25] MEDS: Sodium Phosphate 15 MMOL in IV NS 0.9% 245 ML IV SCH (20:46)
[2023-07-25] MEDS: MIRTAZAPINE 15 MG TABLET PO SCH (22:00)
[2023-07-26 06:53] LABS: BASOPHILS % (AUTO) 0.9 % (0.0-2.0); EOSINOPHILS # (AUTO) 0.1 K/uL (0.0-0.7); EOSINOPHILS % (AUTO) 3.6 % (0.0-6.0); HEMATOCRIT 29 % (33-45); HEMOGLOBIN 9.7 g/dL (11.5-14.8); LYMPHOCYTES # (AUTO) 0.9 K/uL (0.8-4.8); LYMPHOCYTES % (AUTO) 25.5 % (20.0-44.0); MEAN CORPUSCULAR HEMOGLOBIN 35 PG (26.0-33.0); MEAN CORPUSCULAR HGB CONC 33 g/dl (31.0-36.0); MEAN CORPUSCULAR VOLUME 104 fL (82-100); MONOCYTES # (AUTO) 0.4 K/uL (0.1-1.30); MONOCYTES % (AUTO) 10.5 % (2.0-12.0); NEUTROPHILS # (AUTO) 2.2 K/uL (1.8-8.9); NEUTROPHILS % (AUTO) 59.5 % (43.0-81.0); PLATELET COUNT (AUTO) 286 K/uL (150-450); WHITE BLOOD COUNT (AUTO) 3.7 K/uL (4.3-11.0)
[2023-07-26 07:20] LABS: CALCIUM, SERUM 7.5 mg/dL (8.5-10.1); CARBON DIOXIDE 27 mmol/L (21-32); CHLORIDE 109 mmol/L (98-107); CREATININE 0.5 mg/dL (0.6-1.3); GLUCOSE 101 mg/dL (74-106); MAGNESIUM 1.8 mg/dL (1.8-2.4); PHOSPHORUS 2.7 mg/dL (2.5-4.9); POTASSIUM 3.3 mmol/L (3.5-5.1); SODIUM SERUM 141 mmol/L (136-145); UREA NITROGEN, BLOOD 8 mg/dL (7-18)
[2023-07-26] MEDS: LEVOTHYROXINE SODIUM 75 MCG TABLET PO SCH (07:30)
[2023-07-26 08:00] VITALS: BP 130/75; TEMP 98.3; O2SAT 99
[2023-07-26] MEDS: METOPROLOL TARTRATE 25 MG TABLET PO SCH (09:00)
[2023-07-26] MEDS: PANTOPRAZOLE 40 MG TABLET.DR PO SCH (09:00)
[2023-07-26] MEDS: LIOTHYRONINE SODIUM (5 MCG/TA 5 MCG TABLET PO SCH (09:00)
[2023-07-26] MEDS: POTASSIUM CL. PREMIX PERIPHER. 50 ML IV SCH (09:34)
[2023-07-26 16:00] VITALS: BP 126/79; TEMP 97.7; O2SAT 93
[2023-07-26 20:00] VITALS: BP 133/91; TEMP 97.7; O2SAT 95
[2023-07-27 07:02] LABS: BASOPHILS % (AUTO) 0.8 % (0.0-2.0); EOSINOPHILS # (AUTO) 0.1 K/uL (0.0-0.7); HEMATOCRIT 32 % (33-45); HEMOGLOBIN 10.6 g/dL (11.5-14.8); LYMPHOCYTES % (AUTO) 22.6 % (20.0-44.0); MEAN CORPUSCULAR HEMOGLOBIN 35 PG (26.0-33.0); MEAN CORPUSCULAR HGB CONC 34 g/dl (31.0-36.0); MEAN CORPUSCULAR VOLUME 104 fL (82-100); MONOCYTES # (AUTO) 0.5 K/uL (0.1-1.30); NEUTROPHILS # (AUTO) 2.9 K/uL (1.8-8.9); NEUTROPHILS % (AUTO) 63.6 % (43.0-81.0); PLATELET COUNT (AUTO) 313 K/uL (150-450); RED BLOOD CELL COUNT(AUTO) 3.06 MIL/uL (4.0-5.2); RED CELL DISTRIBUTION WIDTH 21.6 % (11.5-15.0); WHITE BLOOD COUNT (AUTO) 4.6 K/uL (4.3-11.0)
[2023-07-27 07:24] LABS: CALCIUM, SERUM 7.7 mg/dL (8.5-10.1); CREATININE 0.6 mg/dL (0.6-1.3); POTASSIUM 3.6 mmol/L (3.5-5.1)
[2023-07-27 08:00] VITALS: BP 130/88; TEMP 98; O2SAT 99
[2023-07-27] MEDS: NEOMY SULF/BACITRAC ZN/POLY 15 GM TUBE TP SCH (10:11)
[2023-07-27] MEDS ORDERED: ANESTHESIA TRAY IN PYXIS 1 EA TRAY MC ONE (11:29)
[2023-07-27 16:00] VITALS: BP 126/82; TEMP 98.2; O2SAT 97
[2023-07-27 20:00] VITALS: BP 126/81; TEMP 97.2; O2SAT 98
[2023-07-27 20:15] VITALS: BP 126/81; TEMP 97.2; O2SAT 98
[2023-07-28 06:47] LABS: BASOPHILS % (AUTO) 0.8 % (0.0-2.0); EOSINOPHILS # (AUTO) 0.1 K/uL (0.0-0.7); EOSINOPHILS % (AUTO) 3.3 % (0.0-6.0); HEMATOCRIT 33 % (33-45); HEMOGLOBIN 10.9 g/dL (11.5-14.8); LYMPHOCYTES % (AUTO) 23.1 % (20.0-44.0); MEAN CORPUSCULAR HEMOGLOBIN 34 PG (26.0-33.0); MEAN CORPUSCULAR HGB CONC 33 g/dl (31.0-36.0); MEAN CORPUSCULAR VOLUME 104 fL (82-100); MONOCYTES # (AUTO) 0.5 K/uL (0.1-1.30); MONOCYTES % (AUTO) 11.6 % (2.0-12.0); NEUTROPHILS # (AUTO) 2.6 K/uL (1.8-8.9); NEUTROPHILS % (AUTO) 61.2 % (43.0-81.0); PLATELET COUNT (AUTO) 327 K/uL (150-450); RED BLOOD CELL COUNT(AUTO) 3.17 MIL/uL (4.0-5.2); RED CELL DISTRIBUTION WIDTH 21.4 % (11.5-15.0); WHITE BLOOD COUNT (AUTO) 4.3 K/uL (4.3-11.0)
[2023-07-28 06:59] LABS: CALCIUM, SERUM 7.7 mg/dL (8.5-10.1); CREATININE 0.6 mg/dL (0.6-1.3); POTASSIUM 3.1 mmol/L (3.5-5.1)
[2023-07-28 08:00] VITALS: BP 129/98; TEMP 97.3; O2SAT 99
[2023-07-28] MEDS: POTASSIUM CL. PREMIX PERIPHER. 50 ML IV SCH (09:28)
[2023-07-28 16:00] VITALS: BP 137/93; TEMP 97.5; O2SAT 98
[2023-07-28 20:18] VITALS: BP 112/88; TEMP 98.1; O2SAT 94
[2023-07-28 20:35] VITALS: BP 112/88; TEMP 98.1; O2SAT 94
[2023-07-29 06:51] LABS: BASOPHILS % (AUTO) 0.4 % (0.0-2.0); EOSINOPHILS % (AUTO) 0.1 % (0.0-6.0); HEMATOCRIT 35 % (33-45); HEMOGLOBIN 11.4 g/dL (11.5-14.8); LYMPHOCYTES # (AUTO) 0.5 K/uL (0.8-4.8); LYMPHOCYTES % (AUTO) 5.3 % (20.0-44.0); MEAN CORPUSCULAR HEMOGLOBIN 35 PG (26.0-33.0); MEAN CORPUSCULAR HGB CONC 32 g/dl (31.0-36.0); MEAN CORPUSCULAR VOLUME 108 fL (82-100); MONOCYTES # (AUTO) 0.5 K/uL (0.1-1.30); MONOCYTES % (AUTO) 4.5 % (2.0-12.0); NEUTROPHILS # (AUTO) 9.1 K/uL (1.8-8.9); NEUTROPHILS % (AUTO) 89.7 % (43.0-81.0); PLATELET COUNT (AUTO) 287 K/uL (150-450); RED BLOOD CELL COUNT(AUTO) 3.27 MIL/uL (4.0-5.2); RED CELL DISTRIBUTION WIDTH 22.1 % (11.5-15.0); WHITE BLOOD COUNT (AUTO) 10.1 K/uL (4.3-11.0)
[2023-07-29 07:11] LABS: CALCIUM, SERUM 7.3 mg/dL (8.5-10.1); CREATININE 0.6 mg/dL (0.6-1.3); POTASSIUM 4.6 mmol/L (3.5-5.1)
[2023-07-29 09:08] VITALS: BP_SYST 110; TEMP 98.9; O2SAT 97
[2023-07-29] MEDS ORDERED: MAGNESIUM HYDROXIDE 30 ML UDC GT PRN (11:15)
[2023-07-29] MEDS ORDERED: ZOLPIDEM TARTRATE 5 MG TABLET GT PRN (11:15)
[2023-07-29] MEDS ORDERED: MAG HYDROX/AL HYDROX/SIMETH 30 ML UDC GT PRN (11:15)
[2023-07-29] MEDS ORDERED: ACETAMINOPHEN 650 MG/20.3 ML UDC GT PRN (11:30)
[2023-07-29] MEDS ORDERED: PHARMACY TO CHANGE PO MEDS TO GT/NG XX PRN (11:30)
[2023-07-29] MEDS: METOCLOPRAMIDE HCL 10 MG/2 ML VIAL IV SCH (12:56)
[2023-07-29 13:04] VITALS: BP 116/80; TEMP 97.6; O2SAT 98
[2023-07-29 16:22] VITALS: BP 118/79; TEMP 96.9; O2SAT 97
[2023-07-29] MEDS: JEVITY 1.2 CAL 1,000 ML BOTTLE GT SCH (16:50)
[2023-07-29] MEDS: PROSOURCE / PROSTAT (PYXIS) 30 ML UDC GT SCH (16:51)
[2023-07-29] MEDS: FERROUS SULFATE (325 MG) 325 MG/TAB TABLET GT SCH (16:51)
[2023-07-29] MEDS: CALCIUM CARBONATE 500 MG TAB.CHEW GT SCH (16:52)
[2023-07-29] MEDS: ASCORBIC ACID 500 MG TABLET GT SCH (16:52)
[2023-07-29] MEDS: MULTIVITAMINS,THERAGRAN 1 UDTAB TABLET GT SCH (16:52)
[2023-07-29] MEDS: CYANOCOBALAMIN 500 MCG TABLET GT SCH (16:52)
[2023-07-29] MEDS: DOCUSATE SODIUM LIQ 100 MG/10 ML UDC GT SCH (19:06)
[2023-07-29 20:00] VITALS: BP 108/85; TEMP 98.2; O2SAT 96
[2023-07-29] MEDS: MIRTAZAPINE 15 MG TABLET GT SCH (22:58)
[2023-07-30] MEDS: LEVOTHYROXINE SODIUM 75 MCG TABLET GT SCH (07:45)
[2023-07-30 08:00] VITALS: BP 102/64; TEMP 97.5; O2SAT 100
[2023-07-30] MEDS: LIOTHYRONINE SODIUM (5 MCG/TA 5 MCG TABLET GT SCH (08:53)
[2023-07-30] MEDS: PANTOPRAZOLE 40 MG/PACK PACK GT SCH (08:54)
[2023-07-30 08:55] VITALS: BP 102/64
[2023-07-30] MEDS: METOPROLOL TARTRATE 25 MG TABLET GT SCH (08:55)
[2023-07-30 09:13] LABS: BASOPHILS # (AUTO) 0.1 K/uL (0.0-0.2); EOSINOPHILS # (AUTO) 0.1 K/uL (0.0-0.7); EOSINOPHILS % (AUTO) 0.9 % (0.0-6.0); HEMATOCRIT 36 % (33-45); HEMOGLOBIN 11.5 g/dL (11.5-14.8); LYMPHOCYTES # (AUTO) 0.9 K/uL (0.8-4.8); LYMPHOCYTES % (AUTO) 15.4 % (20.0-44.0); MEAN CORPUSCULAR HEMOGLOBIN 34 PG (26.0-33.0); MEAN CORPUSCULAR HGB CONC 32 g/dl (31.0-36.0); MEAN CORPUSCULAR VOLUME 105 fL (82-100); MONOCYTES # (AUTO) 0.6 K/uL (0.1-1.30); MONOCYTES % (AUTO) 9.7 % (2.0-12.0); NEUTROPHILS # (AUTO) 4.3 K/uL (1.8-8.9); PLATELET COUNT (AUTO) 257 K/uL (150-450); RED BLOOD CELL COUNT(AUTO) 3.38 MIL/uL (4.0-5.2); RED CELL DISTRIBUTION WIDTH 21.4 % (11.5-15.0); WHITE BLOOD COUNT (AUTO) 5.9 K/uL (4.3-11.0)
[2023-07-30 09:29] LABS: CALCIUM, SERUM 8.2 mg/dL (8.5-10.1); CREATININE 0.8 mg/dL (0.6-1.3); POTASSIUM 4.1 mmol/L (3.5-5.1)
[2023-07-30 09:45] LABS: ANISOCYTOSIS 1+; LYMPHOCYTES % (MANUAL) 16 % (16-48); MONOCYTES % (MANUAL) 10 % (0-11.0); NEUTROPHILS % (MANUAL) 74 (42-76); PLATELET ESTIMATE ADEQUATE
[2023-07-30] MEDS ORDERED: JEVITY 1.2 CAL 1,000 ML BOTTLE GT SCH (10:30)
[2023-07-30] MEDS ORDERED: Neomy Sulf/Bacitrac Zn/Poly TP (11:08)
[2023-07-30] MEDS ORDERED: CYAN500T64 GT (11:08)
[2023-07-30] MEDS ORDERED: METO-295 GT (11:08)
[2023-07-30] MEDS ORDERED: METO25TA20 GT (11:08)
[2023-07-30] MEDS ORDERED: FERR325T28 GT (11:08)
[2023-07-30] MEDS ORDERED: MULT-24 GT (11:08)
[2023-07-30] MEDS ORDERED: PANT40SU2 GT (11:08)
[2023-07-30] MEDS ORDERED: DOCU50LI GT (11:08)
[2023-07-30] MEDS ORDERED: LACT-209 GT (11:08)
[2023-07-30] MEDS ORDERED: LIOT5TAB7 GT (11:08)
[2023-07-30] MEDS ORDERED: ASCO500T21 GT (11:08)
[2023-07-30] MEDS ORDERED: CALC500T63 GT (11:08)
[2023-07-30] MEDS ORDERED: LEVO75TA GT (11:08)
[2023-07-30] MEDS ORDERED: ENOXAPARIN SODIUM 30 MG/0.3 ML DISP.SYRIN SQ SCH (21:00)
== END 2023-07-30 13:30 | DRG 640 ==
LOC: ER 17:38 → MED 20:58
PROVIDERS: ADMIT Nurse Practitioner Family; ATTEND Nurse Practitioner Acute Care
PROC: 0DH63UZ Insertion of Feeding Device into Stomach, Percutaneous Approach (ICD-10-PCS; principal; 2023-07-28)
DX: R62.7 Adult failure to thrive (principal); E43 Unspecified severe protein-calorie malnutrition; G93.41 Metabolic encephalopathy; Z68.1 Body mass index [BMI] 19.9 or less, adult; E86.0 Dehydration; E88.09 Other disorders of plasma-protein metabolism, not elsewhere classified; I10 Essential (primary) hypertension; E87.6 Hypokalemia; D64.9 Anemia, unspecified; E03.9 Hypothyroidism, unspecified; F31.9 Bipolar disorder, unspecified; J44.9 Chronic obstructive pulmonary disease, unspecified; K29.70 Gastritis, unspecified, without bleeding; R13.10 Dysphagia, unspecified; F03.90 Unspecified dementia, unspecified severity, without behavioral disturbance, psychotic disturbance, mood disturbance, and anxiety; Z87.11 Personal history of peptic ulcer disease
CPT/HCPCS: 36415; 43246; 71045-TC; 80048-TC; 80053-TC; 80076-TC; 83690-TC; 83735-TC; 84100-TC; 84443-TC; 85025-TC; 85610-TC; 85730-TC; 87081-TC; 92526; 92611-TC; A4217; A4223; A9563; G0378; J0690; J1650; J2704; J2765; J3480; J3490; J7030; J7042; J7050

== ENCOUNTER 2024-02-27 22:27 | Inpatient (IN) | payer MEDICARE, OTHER ==
[~2024-02-27] VITALS: Ht 149.9 cm; Wt 53.1 kg
[~2024-02-27 22:27] MED LIST changes: +ASCO500T21 GT; +CALC500T63 GT; +COLLAGEN POWDER TP; +CRAN425C6 GT; -CRAN425C6 PO; +CYAN500T64 GT; +DOCU50LI GT; +FERR325T28 GT; +FURO-144 PO; +GENT5DRO4 EACHEYE; -HEPA500039 SQ; +LACT-209 GT; +LEVO75TA GT; +LIOT5TAB7 GT; +METO-295 GT; +METO25TA20 GT; +MULT-24 GT; -MUPI22OI7 BNOSTRILS; -NA P133E RC; +Neomy Sulf/Bacitrac Zn/Poly TP; -ONDA-97 PO; +OXYC5TAB3 GT; -OXYC5TAB3 PO; +PANT40SU2 GT
[2024-02-28 00:29] LABS: BASOPHILS # (AUTO) 0.1 K/uL (0.0-0.2); BASOPHILS % (AUTO) 0.9 % (0.0-2.0); EOSINOPHILS # (AUTO) 0.4 K/uL (0.0-0.7); EOSINOPHILS % (AUTO) 5.2 % (0.0-6.0); HEMATOCRIT 39 % (33-45); HEMOGLOBIN 12.4 g/dL (11.5-14.8); LYMPHOCYTES # (AUTO) 1.7 K/uL (0.8-4.8); LYMPHOCYTES % (AUTO) 23.5 % (20.0-44.0); MEAN CORPUSCULAR HEMOGLOBIN 32 PG (26.0-33.0); MEAN CORPUSCULAR HGB CONC 32 g/dl (31.0-36.0); MEAN CORPUSCULAR VOLUME 101 fL (82-100); MONOCYTES # (AUTO) 0.7 K/uL (0.1-1.30); MONOCYTES % (AUTO) 9.4 % (2.0-12.0); NEUTROPHILS # (AUTO) 4.3 K/uL (1.8-8.9); PLATELET COUNT (AUTO) 333 K/uL (150-450); RED BLOOD CELL COUNT(AUTO) 3.85 MIL/uL (4.0-5.2); RED CELL DISTRIBUTION WIDTH 17.4 % (11.5-15.0); WHITE BLOOD COUNT (AUTO) 7.1 K/uL (4.3-11.0)
[2024-02-28 00:47] LABS: ALANINE AMINOTRANSFERASE 18 U/L (12-78); ALBUMIN 1.5 g/dL (3.4-5.0); ALKALINE PHOSPHATASE 80 U/L (46-116); ASPARTATE AMINOTRANSFERASE 21 U/L (15-37); BILIRUBIN,DIRECT 0.1 mg/dL (0.0-0.2); BILIRUBIN,TOTAL 0.3 mg/dL (0.2-1.0); CALCIUM, SERUM 8.3 mg/dL (8.5-10.1); CARBON DIOXIDE 30 mmol/L (21-32); CHLORIDE 104 mmol/L (98-107); CREATININE 0.9 mg/dL (0.6-1.3); GLUCOSE 80 mg/dL (74-106); POTASSIUM 4.2 mmol/L (3.5-5.1); SODIUM SERUM 136 mmol/L (136-145); TOTAL PROTEIN, SERUM 7.4 g/dL (6.4-8.2); UREA NITROGEN, BLOOD 28 mg/dL (7-18)
[2024-02-28 00:49] LABS: ACETAMINOPHEN <10 ug/ml (10-30); ALCOHOL, BLOOD < 3 mg/dL (0-10); SALICYLATE 0.4 mg/dL (2.8-20.0)
[2024-02-28 02:02] LABS: APPEARANCE,URINE CLOUDY (CLEAR); COLOR,URINE YELLOW (YELLOW)
[2024-02-28 02:05] LABS: PROTEIN,URINE 3+ mg/dl (NEGATIVE); UGLUCOSE NEGATIVE (NEGATIVE)
[2024-02-28 02:06] LABS: BILIRUBIN,URINE NEGATIVE (NEGATIVE); KETONES,URINE NEGATIVE (NEGATIVE)
[2024-02-28 02:07] LABS: LEUKOCYTE ESTERASE ,URINE LARGE (NEGATIVE); NITRITE, URINE NEGATIVE (NEGATIVE); UROBILINOGEN,URINE 0.2 EU/dL (0.2)
[2024-02-28 02:08] LABS: AMPHETAMINE, URINE NEGATIVE (NEGATIVE); BARBITURATE, URINE NEGATIVE (NEGATIVE); BENZODIAZEPINE, URINE NEGATIVE (NEGATIVE); BLOOD, URINE LARGE Ery/uL (NEGATIVE); CANNABINOID, URINE NEGATIVE (NEGATIVE); COCCAINE, URINE NEGATIVE (NEGATIVE); OPIATE, URINE NEGATIVE (NEGATIVE); PHENCYCLIDINE SCREEN,URINE NEGATIVE (NEGATIVE)
[2024-02-28 02:13] LABS: BACTERIA,URINE Many /HPF (None Seen); SQUAMOUS EPITHELIAL CELL,UR Moderate /HPF (None Seen)
[2024-02-28 02:15] LABS: ADD URINE CULTURE YES
[2024-02-28 02:18] LABS: WBC,URINE TOO NUMEROUS TO COUN /HPF (0-3)
[2024-02-28] MEDS: CEFTRIAXONE 1GM BAG (ER ONLY) 1 GM/50 ML PIGGYBACK IV ONE (02:30)
[2024-02-28] MEDS ORDERED: ACETAMINOPHEN 325 MG TABLET PO PRN (03:00)
[2024-02-28] MEDS ORDERED: MAGNESIUM HYDROXIDE 30 ML UDC PO PRN (03:00)
[2024-02-28] MEDS ORDERED: MAG HYDROX/AL HYDROX/SIMETH 30 ML UDC PO PRN (03:00)
[2024-02-28] MEDS ORDERED: JEVITY 1.2 CAL 1,000 ML BOTTLE GT SCH (03:00)
[2024-02-28] MEDS ORDERED: CEFTRIAXONE 1 G in IV D5W 50 ML IV SCH (03:00)
[2024-02-28] MEDS ORDERED: CEFTRIAXONE 1GM BAG (ER ONLY) 50 ML IV ONE (03:37)
[2024-02-28 07:22] LABS: BASOPHILS # (AUTO) 0.1 K/uL (0.0-0.2); BASOPHILS % (AUTO) 1.2 % (0.0-2.0); EOSINOPHILS # (AUTO) 0.3 K/uL (0.0-0.7); EOSINOPHILS % (AUTO) 4.1 % (0.0-6.0); HEMATOCRIT 36 % (33-45); HEMOGLOBIN 12.3 g/dL (11.5-14.8); LYMPHOCYTES # (AUTO) 1.4 K/uL (0.8-4.8); LYMPHOCYTES % (AUTO) 21.5 % (20.0-44.0); MEAN CORPUSCULAR HEMOGLOBIN 33 PG (26.0-33.0); MEAN CORPUSCULAR HGB CONC 34 g/dl (31.0-36.0); MEAN CORPUSCULAR VOLUME 97 fL (82-100); MONOCYTES # (AUTO) 0.5 K/uL (0.1-1.30); MONOCYTES % (AUTO) 7.2 % (2.0-12.0); NEUTROPHILS # (AUTO) 4.2 K/uL (1.8-8.9); PLATELET COUNT (AUTO) 360 K/uL (150-450); RED BLOOD CELL COUNT(AUTO) 3.77 MIL/uL (4.0-5.2); RED CELL DISTRIBUTION WIDTH 16.2 % (11.5-15.0); WHITE BLOOD COUNT (AUTO) 6.4 K/uL (4.3-11.0)
[2024-02-28 07:41] LABS: CALCIUM, SERUM 8.5 mg/dL (8.5-10.1); CREATININE 0.8 mg/dL (0.6-1.3); MAGNESIUM 2.3 mg/dL (1.8-2.4); PHOSPHORUS 3.3 mg/dL (2.5-4.9); POTASSIUM 3.9 mmol/L (3.5-5.1)
[2024-02-28 08:52] LABS: THYROID STIMULATING HORMONE 24.02 uIU/mL (0.358-3.74)
[2024-02-28 09:00] VITALS: BP 125/85; TEMP 98.1; O2SAT 97
[2024-02-28] MEDS ORDERED: Medication Not On Formulary EA (Amino AC/Protein Hydr/Whey Pro (Liquacel Liquid Protein PO SCH (09:00)
[2024-02-28] MEDS ORDERED: LIOTHYRONINE SODIUM (5 MCG/TA 5 MCG TABLET GT SCH (09:00)
[2024-02-28] MEDS ORDERED: NA P133E RC (09:54)
[2024-02-28] MEDS ORDERED: LEVO100T9 GT (09:54)
[2024-02-28] MEDS ORDERED: LACT-96 GT (09:54)
[2024-02-28] MEDS ORDERED: FERR220S2 GT (09:58)
[2024-02-28] MEDS ORDERED: FLUV25TA3 GT (09:58)
[2024-02-28] MEDS ORDERED: AMIN30LI66 GT (09:58)
[2024-02-28 10:00] VITALS: BP 125/85; TEMP 98.1; O2SAT 60
[2024-02-28] MEDS: CALCIUM CARBONATE 500 MG TAB.CHEW GT SCH (10:10)
[2024-02-28] MEDS: FERROUS SULFATE (325 MG) 325 MG/TAB TABLET GT SCH (10:10)
[2024-02-28] MEDS: LEVOTHYROXINE SODIUM 75 MCG TABLET GT SCH (10:10)
[2024-02-28] MEDS: PANTOPRAZOLE 40 MG/PACK PACK GT SCH (10:10)
[2024-02-28] MEDS: METOCLOPRAMIDE HCL 10 MG TABLET GT SCH (10:11)
[2024-02-28] MEDS: FUROSEMIDE 40 MG TABLET PO SCH (10:15)
[2024-02-28] MEDS: METOPROLOL TARTRATE 25 MG TABLET GT SCH (10:21)
[2024-02-28] MEDS: CYANOCOBALAMIN 500 MCG TABLET GT SCH (18:00)
[2024-02-28] MEDS: DOCUSATE SODIUM 100 MG CAPSULE PO SCH (18:00)
[2024-02-28] MEDS: ASCORBIC ACID 500 MG TABLET GT SCH (18:00)
[2024-02-28] MEDS: MULTIVITAMINS,THERAGRAN 1 UDTAB TABLET GT SCH (18:00)
[2024-02-28 22:00] VITALS: BP 122/80; TEMP 97.9; O2SAT 90
[2024-02-29] MEDS: CEFTRIAXONE 1 G in IV D5W 50 ML IV SCH (03:00)
[2024-02-29 05:00] VITALS: BP 120/69; TEMP 97.8; O2SAT 92
[2024-02-29] MEDS: LIOTHYRONINE SODIUM (25 MCG) 25 MCG TABLET GT SCH (11:50)
[2024-02-29 13:00] VITALS: BP 120/81; TEMP 97.7; O2SAT 92
[2024-02-29 18:57] LABS: BASOPHILS # (AUTO) 0.1 K/uL (0.0-0.2); BASOPHILS % (AUTO) 0.9 % (0.0-2.0); EOSINOPHILS # (AUTO) 0.1 K/uL (0.0-0.7); HEMATOCRIT 44 % (33-45); HEMOGLOBIN 13.9 g/dL (11.5-14.8); LYMPHOCYTES # (AUTO) 1.1 K/uL (0.8-4.8); MEAN CORPUSCULAR HEMOGLOBIN 32 PG (26.0-33.0); MEAN CORPUSCULAR HGB CONC 32 g/dl (31.0-36.0); MEAN CORPUSCULAR VOLUME 102 fL (82-100); MONOCYTES # (AUTO) 0.4 K/uL (0.1-1.30); MONOCYTES % (AUTO) 5.8 % (2.0-12.0); NEUTROPHILS # (AUTO) 5.5 K/uL (1.8-8.9); NEUTROPHILS % (AUTO) 77.3 % (43.0-81.0); PLATELET COUNT (AUTO) 383 K/uL (150-450); RED CELL DISTRIBUTION WIDTH 17.8 % (11.5-15.0); WHITE BLOOD COUNT (AUTO) 7.1 K/uL (4.3-11.0)
[2024-02-29 19:06] LABS: CALCIUM, SERUM 8.6 mg/dL (8.5-10.1); CREATININE 1.2 mg/dL (0.6-1.3); POTASSIUM 4.5 mmol/L (3.5-5.1)
[2024-02-29 21:00] VITALS: BP 121/92; TEMP 98.4; O2SAT 98
[2024-03-01 04:00] VITALS: BP 115/83; TEMP 98.2; O2SAT 100
[2024-03-01 08:00] VITALS: BP 117/88; TEMP 97.4; O2SAT 100
[2024-03-01] MEDS: QUETIAPINE FUMARATE 25 MG TABLET PO SCH (12:28)
[2024-03-01 16:00] VITALS: BP 131/94; TEMP 98.1; O2SAT 96
[2024-03-01 20:00] VITALS: BP 104/82; TEMP 97.2; O2SAT 98
[2024-03-01] MEDS: ENOXAPARIN SODIUM 30 MG/0.3 ML DISP.SYRIN SQ SCH (20:19)
[2024-03-02 04:00] VITALS: BP 123/80; TEMP 97.5; O2SAT 97
[2024-03-02 06:21] LABS: BASOPHILS # (AUTO) 0.2 K/uL (0.0-0.2); BASOPHILS % (AUTO) 3.3 % (0.0-2.0); EOSINOPHILS # (AUTO) 0.1 K/uL (0.0-0.7); HEMATOCRIT 38 % (33-45); HEMOGLOBIN 12.6 g/dL (11.5-14.8); LYMPHOCYTES # (AUTO) 1.6 K/uL (0.8-4.8); MEAN CORPUSCULAR HEMOGLOBIN 32 PG (26.0-33.0); MEAN CORPUSCULAR HGB CONC 33 g/dl (31.0-36.0); MEAN CORPUSCULAR VOLUME 98 fL (82-100); MONOCYTES # (AUTO) 0.5 K/uL (0.1-1.30); MONOCYTES % (AUTO) 8.3 % (2.0-12.0); NEUTROPHILS # (AUTO) 3.6 K/uL (1.8-8.9); NEUTROPHILS % (AUTO) 60.4 % (43.0-81.0); PLATELET COUNT (AUTO) 401 K/uL (150-450); RED BLOOD CELL COUNT(AUTO) 3.89 MIL/uL (4.0-5.2); RED CELL DISTRIBUTION WIDTH 17.2 % (11.5-15.0)
[2024-03-02 06:44] LABS: CALCIUM, SERUM 8.7 mg/dL (8.5-10.1); CREATININE 1.2 mg/dL (0.6-1.3); MAGNESIUM 2.4 mg/dL (1.8-2.4); POTASSIUM 4.6 mmol/L (3.5-5.1)
[2024-03-02 07:16] LABS: THYROID STIMULATING HORMONE 24.42 uIU/mL (0.358-3.74)
[2024-03-02 08:00] VITALS: BP 105/87; TEMP 97.5; O2SAT 97
[2024-03-02] MEDS: LIOTHYRONINE SODIUM (25 MCG) 25 MCG TABLET GT SCH (09:27)
[2024-03-02] MEDS: MUPIROCIN OINT 2% 22 GM TUBE TP SCH (11:57)
[2024-03-02 16:00] VITALS: BP 101/65; TEMP 97.2; O2SAT 94
[2024-03-02 22:00] VITALS: BP 92/66; TEMP 98.6; O2SAT 94
[2024-03-03 04:00] VITALS: BP 107/72; TEMP 98.4; O2SAT 99
[2024-03-03 07:23] LABS: BASOPHILS # (AUTO) 0.1 K/uL (0.0-0.2); BASOPHILS % (AUTO) 1.1 % (0.0-2.0); EOSINOPHILS # (AUTO) 0.2 K/uL (0.0-0.7); EOSINOPHILS % (AUTO) 2.3 % (0.0-6.0); HEMATOCRIT 36 % (33-45); HEMOGLOBIN 12.1 g/dL (11.5-14.8); LYMPHOCYTES # (AUTO) 1.4 K/uL (0.8-4.8); LYMPHOCYTES % (AUTO) 19.5 % (20.0-44.0); MEAN CORPUSCULAR HEMOGLOBIN 33 PG (26.0-33.0); MEAN CORPUSCULAR HGB CONC 33 g/dl (31.0-36.0); MEAN CORPUSCULAR VOLUME 99 fL (82-100); MONOCYTES # (AUTO) 0.6 K/uL (0.1-1.30); MONOCYTES % (AUTO) 8.4 % (2.0-12.0); NEUTROPHILS # (AUTO) 5.1 K/uL (1.8-8.9); NEUTROPHILS % (AUTO) 68.7 % (43.0-81.0); PLATELET COUNT (AUTO) 335 K/uL (150-450); RED BLOOD CELL COUNT(AUTO) 3.67 MIL/uL (4.0-5.2); WHITE BLOOD COUNT (AUTO) 7.4 K/uL (4.3-11.0)
[2024-03-03 07:37] LABS: CALCIUM, SERUM 8.7 mg/dL (8.5-10.1); CREATININE 1.1 mg/dL (0.6-1.3); MAGNESIUM 2.2 mg/dL (1.8-2.4); PHOSPHORUS 3.1 mg/dL (2.5-4.9); POTASSIUM 4.6 mmol/L (3.5-5.1)
[2024-03-03 08:41] VITALS: BP 105/87; TEMP 97.5; O2SAT 97
[2024-03-03] MEDS ORDERED: DIATRIZOATE MEGLUMINE 300 ML BOTTLE UR ONE (10:57)
[2024-03-03 16:32] VITALS: BP 118/65; TEMP 97.2; O2SAT 94
[2024-03-03 20:00] VITALS: BP 130/86; TEMP 98.2; O2SAT 98
[2024-03-04 04:00] VITALS: BP 133/82; TEMP 98; O2SAT 97
[2024-03-04 08:54] LABS: BASOPHILS # (AUTO) 0.1 K/uL (0.0-0.2); BASOPHILS % (AUTO) 1.5 % (0.0-2.0); EOSINOPHILS # (AUTO) 0.2 K/uL (0.0-0.7); HEMATOCRIT 39 % (33-45); LYMPHOCYTES # (AUTO) 1.4 K/uL (0.8-4.8); LYMPHOCYTES % (AUTO) 25.8 % (20.0-44.0); MEAN CORPUSCULAR HEMOGLOBIN 33 PG (26.0-33.0); MEAN CORPUSCULAR HGB CONC 34 g/dl (31.0-36.0); MEAN CORPUSCULAR VOLUME 99 fL (82-100); MONOCYTES # (AUTO) 0.5 K/uL (0.1-1.30); MONOCYTES % (AUTO) 8.5 % (2.0-12.0); NEUTROPHILS # (AUTO) 3.2 K/uL (1.8-8.9); NEUTROPHILS % (AUTO) 60.2 % (43.0-81.0); PLATELET COUNT (AUTO) 345 K/uL (150-450); RED BLOOD CELL COUNT(AUTO) 3.94 MIL/uL (4.0-5.2); RED CELL DISTRIBUTION WIDTH 17.4 % (11.5-15.0); WHITE BLOOD COUNT (AUTO) 5.4 K/uL (4.3-11.0)
[2024-03-04] MEDS: LORAZEPAM 1 MG TABLET PO PRN (10:33)
[2024-03-04] MEDS: MEGESTROL ACETATE SUSP 400 MG/10 ML UDC PO SCH (10:35)
[2024-03-04 11:21] LABS: MAGNESIUM 2.3 mg/dL (1.8-2.4); PHOSPHORUS 3.1 mg/dL (2.5-4.9)
[2024-03-04] MEDS ORDERED: DIATRIZOATE MEGLUMINE 300 ML BOTTLE UR ONE (11:40)
[2024-03-04 16:00] VITALS: BP 112/68; TEMP 97.5; O2SAT 96
[2024-03-04 18:19] LABS: CALCIUM, SERUM 8.8 mg/dL (8.5-10.1); CREATININE 1.1 mg/dL (0.6-1.3); POTASSIUM 4.7 mmol/L (3.5-5.1)
[2024-03-04 20:00] VITALS: BP 163/78; TEMP 97.5; O2SAT 92
[2024-03-05 04:00] VITALS: BP 159/74; TEMP 97.2; O2SAT 95
[2024-03-05 08:00] VITALS: BP 115/73; TEMP 97.7; O2SAT 97
[2024-03-05 12:06] LABS: FOLIC ACID 17.7 ng/mL (>3.0)
[2024-03-05] MEDS: QUETIAPINE FUMARATE 25 MG TABLET PO SCH (13:08)
[2024-03-05 16:00] VITALS: BP 130/65; TEMP 97.7; O2SAT 95
[2024-03-05 16:52] LABS: BASOPHILS % (AUTO) 0.5 % (0.0-2.0); EOSINOPHILS # (AUTO) 0.1 K/uL (0.0-0.7); EOSINOPHILS % (AUTO) 1.6 % (0.0-6.0); HEMATOCRIT 42 % (33-45); HEMOGLOBIN 13.9 g/dL (11.5-14.8); LYMPHOCYTES # (AUTO) 1.2 K/uL (0.8-4.8); LYMPHOCYTES % (AUTO) 18.3 % (20.0-44.0); MEAN CORPUSCULAR HEMOGLOBIN 32 PG (26.0-33.0); MEAN CORPUSCULAR HGB CONC 33 g/dl (31.0-36.0); MEAN CORPUSCULAR VOLUME 97 fL (82-100); MONOCYTES # (AUTO) 0.5 K/uL (0.1-1.30); NEUTROPHILS # (AUTO) 4.8 K/uL (1.8-8.9); NEUTROPHILS % (AUTO) 72.6 % (43.0-81.0); PLATELET COUNT (AUTO) 402 K/uL (150-450); RED BLOOD CELL COUNT(AUTO) 4.31 MIL/uL (4.0-5.2); RED CELL DISTRIBUTION WIDTH 16.9 % (11.5-15.0); WHITE BLOOD COUNT (AUTO) 6.6 K/uL (4.3-11.0)
[2024-03-05 17:08] LABS: CALCIUM, SERUM 8.4 mg/dL (8.5-10.1); CREATININE 1.1 mg/dL (0.6-1.3); MAGNESIUM 2.2 mg/dL (1.8-2.4); PHOSPHORUS 3.4 mg/dL (2.5-4.9); POTASSIUM 3.5 mmol/L (3.5-5.1)
[2024-03-05] MEDS: IV D5W 1,000 ML IV ONE (19:05)
[2024-03-05 20:36] VITALS: BP 100/66; TEMP 98.8; O2SAT 92
[2024-03-06 04:13] VITALS: BP 114/75; TEMP 98.2; O2SAT 90
[2024-03-06 07:52] LABS: BASOPHILS % (AUTO) 0.7 % (0.0-2.0); EOSINOPHILS # (AUTO) 0.1 K/uL (0.0-0.7); HEMATOCRIT 39 % (33-45); HEMOGLOBIN 13.4 g/dL (11.5-14.8); LYMPHOCYTES # (AUTO) 1.7 K/uL (0.8-4.8); LYMPHOCYTES % (AUTO) 24.1 % (20.0-44.0); MEAN CORPUSCULAR HEMOGLOBIN 34 PG (26.0-33.0); MEAN CORPUSCULAR HGB CONC 34 g/dl (31.0-36.0); MEAN CORPUSCULAR VOLUME 98 fL (82-100); MONOCYTES # (AUTO) 0.5 K/uL (0.1-1.30); MONOCYTES % (AUTO) 7.1 % (2.0-12.0); NEUTROPHILS # (AUTO) 4.5 K/uL (1.8-8.9); NEUTROPHILS % (AUTO) 66.1 % (43.0-81.0); PLATELET COUNT (AUTO) 364 K/uL (150-450); RED CELL DISTRIBUTION WIDTH 17.2 % (11.5-15.0); WHITE BLOOD COUNT (AUTO) 6.9 K/uL (4.3-11.0)
[2024-03-06 07:55] LABS: CALCIUM, SERUM 9.1 mg/dL (8.5-10.1); MAGNESIUM 2.1 mg/dL (1.8-2.4); PHOSPHORUS 3.3 mg/dL (2.5-4.9); POTASSIUM 3.4 mmol/L (3.5-5.1)
[2024-03-06 08:00] VITALS: BP 106/81; TEMP 98.1; O2SAT 93
[2024-03-06] MEDS: LEVOTHYROXINE SODIUM 100 MCG TABLET PO SCH (08:17)
[2024-03-06] MEDS: POTASSIUM CHLORIDE 20 MEQ TAB.PRT.SR PO SCH (09:44)
[2024-03-06 16:00] VITALS: BP 119/80; TEMP 97.9; O2SAT 94
[2024-03-06 20:00] VITALS: BP 125/78; TEMP 97.8; O2SAT 92
[2024-03-07 04:00] VITALS: BP 120/77; TEMP 97.6; O2SAT 95
[2024-03-07 08:00] VITALS: BP 115/79; TEMP 97.7; O2SAT 95
[2024-03-07] MEDS ORDERED: TPN/PPN PER PHARMACY IV PRN (12:30)
[2024-03-07] MEDS ORDERED: DEXTROSE 50%-WATER 50 ML DISP.SYRIN IV PRN (13:30)
[2024-03-07] MEDS: PPN #1 IV SCH (14:24)
[2024-03-07] MEDS: POTASSIUM CL. PREMIX PERIPHER. 50 ML IV SCH (15:02)
[2024-03-07 15:59] LABS: BASOPHILS # (AUTO) 0.1 K/uL (0.0-0.2); BASOPHILS % (AUTO) 1.1 % (0.0-2.0); EOSINOPHILS # (AUTO) 0.1 K/uL (0.0-0.7); EOSINOPHILS % (AUTO) 0.8 % (0.0-6.0); HEMATOCRIT 41 % (33-45); HEMOGLOBIN 13.8 g/dL (11.5-14.8); LYMPHOCYTES # (AUTO) 1.4 K/uL (0.8-4.8); MEAN CORPUSCULAR HEMOGLOBIN 33 PG (26.0-33.0); MEAN CORPUSCULAR HGB CONC 34 g/dl (31.0-36.0); MEAN CORPUSCULAR VOLUME 96 fL (82-100); MONOCYTES # (AUTO) 0.4 K/uL (0.1-1.30); MONOCYTES % (AUTO) 6.9 % (2.0-12.0); NEUTROPHILS # (AUTO) 4.3 K/uL (1.8-8.9); NEUTROPHILS % (AUTO) 68.2 % (43.0-81.0); PLATELET COUNT (AUTO) 351 K/uL (150-450); RED BLOOD CELL COUNT(AUTO) 4.22 MIL/uL (4.0-5.2); RED CELL DISTRIBUTION WIDTH 17.2 % (11.5-15.0); WHITE BLOOD COUNT (AUTO) 6.3 K/uL (4.3-11.0)
[2024-03-07 16:00] VITALS: BP 120/90; TEMP 97.7; O2SAT 95
[2024-03-07 16:22] LABS: CALCIUM, SERUM 8.8 mg/dL (8.5-10.1); CREATININE 1.3 mg/dL (0.6-1.3); PHOSPHORUS 3.7 mg/dL (2.5-4.9); POTASSIUM 3.8 mmol/L (3.5-5.1)
[2024-03-07] MEDS: BLOOD SUGAR DIAGNOSTIC 1 EACH STRIP IN SCH (17:55)
[2024-03-07 20:00] VITALS: BP 125/96; TEMP 98.1; O2SAT 94
[2024-03-08 04:00] VITALS: BP 130/92; TEMP 98.2; O2SAT 94
[2024-03-08] MEDS: INSULIN REGULAR, HUMAN 100 UNIT/ML 3 ML VIAL SQ PRN (05:10)
[2024-03-08 06:57] LABS: BASOPHILS # (AUTO) 0.1 K/uL (0.0-0.2); BASOPHILS % (AUTO) 0.7 % (0.0-2.0); EOSINOPHILS # (AUTO) 0.1 K/uL (0.0-0.7); EOSINOPHILS % (AUTO) 1.7 % (0.0-6.0); HEMATOCRIT 45 % (33-45); HEMOGLOBIN 14.5 g/dL (11.5-14.8); LYMPHOCYTES # (AUTO) 1.6 K/uL (0.8-4.8); LYMPHOCYTES % (AUTO) 19.4 % (20.0-44.0); MEAN CORPUSCULAR HEMOGLOBIN 33 PG (26.0-33.0); MEAN CORPUSCULAR HGB CONC 33 g/dl (31.0-36.0); MEAN CORPUSCULAR VOLUME 100 fL (82-100); MONOCYTES # (AUTO) 0.6 K/uL (0.1-1.30); MONOCYTES % (AUTO) 7.1 % (2.0-12.0); NEUTROPHILS # (AUTO) 5.7 K/uL (1.8-8.9); NEUTROPHILS % (AUTO) 71.1 % (43.0-81.0); PLATELET COUNT (AUTO) 297 K/uL (150-450); RED BLOOD CELL COUNT(AUTO) 4.43 MIL/uL (4.0-5.2); RED CELL DISTRIBUTION WIDTH 17.9 % (11.5-15.0); WHITE BLOOD COUNT (AUTO) 8.1 K/uL (4.3-11.0)
[2024-03-08 07:05] LABS: ALBUMIN 2.1 g/dL (3.4-5.0); BILIRUBIN,TOTAL 0.4 mg/dL (0.2-1.0); CALCIUM, SERUM 8.7 mg/dL (8.5-10.1); CREATININE 1.3 mg/dL (0.6-1.3); MAGNESIUM 2.2 mg/dL (1.8-2.4); POTASSIUM 4.3 mmol/L (3.5-5.1); TOTAL PROTEIN, SERUM 6.9 g/dL (6.4-8.2)
[2024-03-08 07:46] LABS: INR 1.08 (0.91-1.10); PARTIAL THROMBOPLASTIN TIME 27.9 SEC (24.3-34.3); PROTHROMBIN TIME 11.4 SECS (9.2-11.1)
[2024-03-08 08:00] VITALS: BP 99/70; TEMP 98.4; O2SAT 98
[2024-03-08] MEDS ORDERED: LIDOCAINE 1%-EPI 1:100,000 20 ML VIAL ONE (13:41)
[2024-03-08] MEDS ORDERED: BUPIVACAINE 0.5 % PF 150 MG/30 ML VIAL ONE (13:41)
[2024-03-08] MEDS: FAT EMULSION 20% 500 ML in PREMIX 1 EA IV SCH (14:00)
[2024-03-08] MEDS ORDERED: FENTANYL PF 250MCG/5ML AMPUL ONE (16:17)
[2024-03-08] MEDS ORDERED: ROCURONIUM BROMIDE 50 MG/5 ML ONE (16:17)
[2024-03-08] MEDS ORDERED: METRONIDAZOLE 500MG/ NS 100ML 100 ML IV ONE (17:09)
[2024-03-08] MEDS ORDERED: LABETALOL HCL IV 100MG VIAL ONE (17:18)
[2024-03-08] MEDS ORDERED: CELLULOSE,OXIDIZED 1 EA PACK MC ONE (17:27)
[2024-03-08] MEDS ORDERED: HEMOSTATIC MATRIX 8 ML 1 EACH PAD MC ONE (17:57)
[2024-03-08 20:20] VITALS: BP 101/71; O2SAT 95
[2024-03-08 21:30] VITALS: BP 101/72; TEMP 97.5; O2SAT 97
[2024-03-08 22:27] VITALS: BP 94/63; TEMP 97.3; O2SAT 97
[2024-03-08 23:16] VITALS: BP 93/61; TEMP 97.5; O2SAT 99
[2024-03-08] MEDS: PPN #2 IV SCH (23:44)
[2024-03-09 04:50] VITALS: BP 120/73; TEMP 97.3; O2SAT 99
[2024-03-09 08:00] VITALS: BP 96/65; TEMP 97.9; O2SAT 92
[2024-03-09 09:42] LABS: CALCIUM, SERUM 8.3 mg/dL (8.5-10.1); CREATININE 1.2 mg/dL (0.6-1.3); PHOSPHORUS 3.2 mg/dL (2.5-4.9); POTASSIUM 3.7 mmol/L (3.5-5.1)
[2024-03-09 16:00] VITALS: BP 109/71; TEMP 98.8; O2SAT 94
[2024-03-10] MEDS: ONDANSETRON HCL/PF 4 MG/2 ML VIAL IVP PRN (00:19)
[2024-03-10] MEDS: PPN BAG #3 IV SCH (00:25)
[2024-03-10 08:27] LABS: BASOPHILS # (AUTO) 0.1 K/uL (0.0-0.2); BASOPHILS % (AUTO) 0.6 % (0.0-2.0); EOSINOPHILS # (AUTO) 0.1 K/uL (0.0-0.7); EOSINOPHILS % (AUTO) 0.9 % (0.0-6.0); HEMATOCRIT 38 % (33-45); HEMOGLOBIN 12.5 g/dL (11.5-14.8); LYMPHOCYTES # (AUTO) 0.9 K/uL (0.8-4.8); LYMPHOCYTES % (AUTO) 8.6 % (20.0-44.0); MEAN CORPUSCULAR HEMOGLOBIN 33 PG (26.0-33.0); MEAN CORPUSCULAR HGB CONC 33 g/dl (31.0-36.0); MEAN CORPUSCULAR VOLUME 100 fL (82-100); MONOCYTES # (AUTO) 0.5 K/uL (0.1-1.30); MONOCYTES % (AUTO) 5.1 % (2.0-12.0); NEUTROPHILS # (AUTO) 8.4 K/uL (1.8-8.9); NEUTROPHILS % (AUTO) 84.8 % (43.0-81.0); PLATELET COUNT (AUTO) 230 K/uL (150-450); RED CELL DISTRIBUTION WIDTH 17.7 % (11.5-15.0); WHITE BLOOD COUNT (AUTO) 9.9 K/uL (4.3-11.0)
[2024-03-10 08:37] LABS: CALCIUM, SERUM 7.5 mg/dL (8.5-10.1); MAGNESIUM 2.1 mg/dL (1.8-2.4); PHOSPHORUS 1.7 mg/dL (2.5-4.9); POTASSIUM 3.5 mmol/L (3.5-5.1)
[2024-03-10] MEDS: PANTOPRAZOLE 40 MG/PACK PACK GT SCH (09:38)
[2024-03-10] MEDS ORDERED: Sodium Phosphate 15 MMOL in IV NS 0.9% 245 ML IV SCH (16:30)
[2024-03-10] MEDS: NEUTRA PHOS 1 POWD.PACKET GT ONE (17:21)
[2024-03-10] MEDS: POTASSIUM CL. PREMIX PERIPHER. 50 ML IV SCH (17:30)
[2024-03-10 20:00] VITALS: BP 103/82; TEMP 97.5; O2SAT 93
[2024-03-11] VITALS (8 sets, daily range): BP systolic 91–122; BP diastolic 57–82; TEMP 97.3–98.4; O2SAT 93–99
[2024-03-11] MEDS: PPN BAG #4 IV SCH (01:12)
[2024-03-11] MEDS ORDERED: VITAL AF 1.2 1,000 ML BOTTLE GT PRN (14:00)
[2024-03-11] MEDS ORDERED: JEVITY 1.2 CAL 1,000 ML BOTTLE GT PRN (15:00)
[2024-03-11 15:31] LABS: CALCIUM, SERUM 7.9 mg/dL (8.5-10.1); CREATININE 0.9 mg/dL (0.6-1.3); MAGNESIUM 1.6 mg/dL (1.8-2.4); PHOSPHORUS 1.9 mg/dL (2.5-4.9); POTASSIUM 3.5 mmol/L (3.5-5.1)
[2024-03-12] MEDS: PPN BAG #5 IV SCH (02:23)
[2024-03-12 04:00] VITALS: BP 93/48; TEMP 98.2; O2SAT 96
[2024-03-12] MEDS: VITAL AF 1.2 1,000 ML BOTTLE GT PRN (04:02)
[2024-03-12 08:00] VITALS: BP 92/50; TEMP 97.8
[2024-03-12 08:42] LABS: CHOLESTEROL 116 mg/dL (<200); HDL CHOLESTEROL 59 mg/dL (40-60); LDL 52 mg/dL (0-99); TRIGLYCERIDES 53 mg/dL (30-150)
[2024-03-12] MEDS: Magnesium 1GM/D5W 100ML PREMIX 100 ML IV SCH (09:44)
[2024-03-12 12:00] VITALS: BP 100/62; TEMP 97.9; O2SAT 97
[2024-03-12] MEDS: POTASSIUM PHOSPHATE MM 7.5 MMOL in IV NS 0.9% 100 ML IV SCH (12:14)
[2024-03-12 16:00] VITALS: BP 79/61; TEMP 97.7; O2SAT 97
[2024-03-12 20:00] VITALS: BP 94/64; TEMP 99; O2SAT 92
[2024-03-13 05:35] VITALS: BP 92/58; TEMP 98.2; O2SAT 92
[2024-03-13 08:00] LABS: CALCIUM, SERUM 7.6 mg/dL (8.5-10.1); CREATININE 0.9 mg/dL (0.6-1.3); MAGNESIUM 2.2 mg/dL (1.8-2.4); PHOSPHORUS 2.4 mg/dL (2.5-4.9)
[2024-03-13] MEDS: POTASSIUM CHLORIDE 20 MEQ POWDER PACKET GT SCH (10:06)
[2024-03-13 12:00] VITALS: BP 101/62; O2SAT 97
[2024-03-13] MEDS ORDERED: PPN BAG #6 IV SCH (12:55)
== END 2024-03-13 15:40 | DRG 981 ==
LOC: ER 22:28 → TRANSITION 02-28 04:10 → MEDSG1 02-28 07:38
PROVIDERS: ADMIT Student in an Organized Health Care Education/Training Program; ATTEND Internal Medicine
PROC: 0DBN4ZZ Excision of Sigmoid Colon, Percutaneous Endoscopic Approach (ICD-10-PCS; principal; 2024-03-08)
PROC: [UNRECOGNIZED PROCEDURE] (2024-03-08)
PROC: 0D1E4Z4 Bypass Large Intestine to Cutaneous, Percutaneous Endoscopic Approach (ICD-10-PCS; 2024-03-08)
PROC: 0TJB8ZZ Inspection of Bladder, Via Natural or Artificial Opening Endoscopic (ICD-10-PCS; 2024-03-08)
DX: N32.1 Vesicointestinal fistula (principal); E43 Unspecified severe protein-calorie malnutrition; G92.8 Other toxic encephalopathy; N39.0 Urinary tract infection, site not specified; N17.9 Acute kidney failure, unspecified; E86.0 Dehydration; J44.9 Chronic obstructive pulmonary disease, unspecified; Z87.11 Personal history of peptic ulcer disease; E03.9 Hypothyroidism, unspecified; F29 Unspecified psychosis not due to a substance or known physiological condition; F42.9 Obsessive-compulsive disorder, unspecified; Z93.1 Gastrostomy status; Z87.440 Personal history of urinary (tract) infections; Z20.822 Contact with and (suspected) exposure to COVID-19; F03.90 Unspecified dementia, unspecified severity, without behavioral disturbance, psychotic disturbance, mood disturbance, and anxiety; B96.89 Other specified bacterial agents as the cause of diseases classified elsewhere; F31.9 Bipolar disorder, unspecified; I10 Essential (primary) hypertension; E83.9 Disorder of mineral metabolism, unspecified; Z85.850 Personal history of malignant neoplasm of thyroid; K26.9 Duodenal ulcer, unspecified as acute or chronic, without hemorrhage or perforation; R22.1 Localized swelling, mass and lump, neck; Z79.4 Long term (current) use of insulin
CPT/HCPCS: 36415; 70450-TC; 71045-TC; 72194-TC; 80048-TC; 80053-TC; 80061-TC; 80076-TC; 81001; 82607-TC; 82962-TC; 83735-TC; 83921; 84100-TC; 84425; 84439-TC; 84443-TC; 85025-TC; 85610-TC; 85730-TC; 86850-TC; 87081-TC; 88305-TC; 88307-TC; 93307-TC; A4216; A4217; A4223; A9563; A9698; G0378; G0480; J0690; J0696; J1650; J1815; J2405; J2704; J3010; J3475; J3480; J3490; J7030; J7040; J7042; J7050; J7060; J7070; J8597

== ENCOUNTER 2024-06-06 21:27 | Emergency (ER) | payer MEDICARE, OTHER ==
[~2024-06-06] VITALS: Ht 162.6 cm; Wt 49.9 kg
[~2024-06-06 21:27] MED LIST changes: -ACET-868 PO; -ALLA266C2 TP; +AMIN30LI66 GT; -AMIN30LI66 PO; -ASCO-340 PO; -ASCO500T21 GT; -CALC-494 PO; -COLLAGEN POWDER TP; -CYAN500T64 GT; -CYAN500T9 PO; -DOCU50LI GT; +FERR220S2 GT; -FERR325T24 PO; -FERR325T28 GT; +FLUV25TA3 GT; -FURO-144 PO; -LACT-209 GT; +LACT-96 GT; +LEVO100T9 GT; -LEVO75TA GT; -LEVO75TA7 PO; -LIOT5TAB7 PO; -METO-295 GT; -METO25TA6 PO; -MULT-225 PO; +NA P133E RC; -Neomy Sulf/Bacitrac Zn/Poly TP; -POVI3780 TP; -ZINC1CAP2 PO
[2024-06-06] MEDS ORDERED: PANTOPRAZOLE 40 MG VIAL ONE (22:39)
[2024-06-06] MEDS ORDERED: ONDANSETRON HCL/PF 4 MG/2 ML VIAL ONE (22:39)
[2024-06-06] MEDS: PANTOPRAZOLE 80 MG in IV NS 0.9% 500 ML IV ONE (22:57)
[2024-06-06] MEDS: IV NS 0.9% 500 ML BAG IV ONE (22:57)
[2024-06-06] MEDS: ONDANSETRON HCL/PF 4 MG/2 ML VIAL IVP ONE (22:58)
[2024-06-06 22:59] LABS: BASOPHILS # (AUTO) 0.1 K/uL (0.0-0.2); BASOPHILS % (AUTO) 0.6 % (0.0-2.0); EOSINOPHILS # (AUTO) 0.1 K/uL (0.0-0.7); HEMATOCRIT 43 % (33-45); HEMOGLOBIN 14.2 g/dL (11.5-14.8); LYMPHOCYTES # (AUTO) 1.3 K/uL (0.8-4.8); LYMPHOCYTES % (AUTO) 15.3 % (20.0-44.0); MEAN CORPUSCULAR HEMOGLOBIN 32 PG (26.0-33.0); MEAN CORPUSCULAR HGB CONC 33 g/dl (31.0-36.0); MEAN CORPUSCULAR VOLUME 97 fL (82-100); MONOCYTES # (AUTO) 0.6 K/uL (0.1-1.30); MONOCYTES % (AUTO) 6.5 % (2.0-12.0); NEUTROPHILS # (AUTO) 6.6 K/uL (1.8-8.9); NEUTROPHILS % (AUTO) 76.6 % (43.0-81.0); PLATELET COUNT (AUTO) 260 K/uL (150-450); RED CELL DISTRIBUTION WIDTH 15.3 % (11.5-15.0); WHITE BLOOD COUNT (AUTO) 8.6 K/uL (4.3-11.0)
[2024-06-06 23:06] LABS: CALCIUM, SERUM 9.3 mg/dL (8.5-10.1); CREATININE 0.9 mg/dL (0.6-1.3); POTASSIUM 4.1 mmol/L (3.5-5.1)
[2024-06-06 23:11] LABS: ALBUMIN 2.5 g/dL (3.4-5.0); BILIRUBIN,DIRECT 0.1 mg/dL (0.0-0.2); BILIRUBIN,TOTAL 0.3 mg/dL (0.2-1.0); INR 1.24 (0.91-1.10); PARTIAL THROMBOPLASTIN TIME 29.8 SEC (24.3-34.3); TOTAL PROTEIN, SERUM 7.3 g/dL (6.4-8.2)
[2024-06-06 23:15] VITALS: TEMP 98.8
[2024-06-06 23:38] VITALS: BP 138/87; O2SAT 95
== END 2024-06-07 00:43 ==
LOC: ER 21:30
DX: R11.2 Nausea with vomiting, unspecified (principal); F03.90 Unspecified dementia, unspecified severity, without behavioral disturbance, psychotic disturbance, mood disturbance, and anxiety; J44.9 Chronic obstructive pulmonary disease, unspecified; Z79.890 Hormone replacement therapy; Z79.899 Other long term (current) drug therapy; Z86.2 Personal history of diseases of the blood and blood-forming organs and certain disorders involving the immune mechanism
CPT/HCPCS: 99285; 96365; 96375; 85025; 80048; 83690; 80076; 36415; 85730; J2405; J7040 ×2; J2470; A4223

== ENCOUNTER 2024-08-25 08:42 | Inpatient (IN) | payer MEDICARE, OTHER ==
[~2024-08-25] VITALS: Ht 160 cm; Wt 61.7 kg
[~2024-08-25 08:42] MED LIST changes: +ACET325T53 GT; -ACET325T53 PO; +MAGN400T8 GT; -MAGN400T8 PO
[2024-08-25] MEDS ORDERED: ONDANSETRON HCL/PF 4 MG/2 ML VIAL ONE (08:54)
[2024-08-25 09:15] LABS: PLATELET COUNT (AUTO) 294 K/uL (150-450); RED BLOOD CELL COUNT(AUTO) 4.50 MIL/uL (4.0-5.2); RED CELL DISTRIBUTION WIDTH 14.3 % (11.5-15.0); WHITE BLOOD COUNT (AUTO) 9.0 K/uL (4.3-11.0)
[2024-08-25 09:23] LABS: CALCIUM, SERUM 8.9 mg/dL (8.5-10.1); CREATININE 0.7 mg/dL (0.6-1.3); SODIUM SERUM 143 mmol/L (136-145); UREA NITROGEN, BLOOD 35 mg/dL (7-18)
[2024-08-25] MEDS: ONDANSETRON HCL/PF 4 MG/2 ML VIAL IVP ONE (09:24)
[2024-08-25] MEDS: IV NS 0.9% 500 ML BAG IV ONE (09:24)
[2024-08-25 09:29] LABS: ASPARTATE AMINOTRANSFERASE 16 U/L (15-37); INR 0.97 (0.91-1.10); TOTAL PROTEIN, SERUM 8.0 g/dL (6.4-8.2)
[2024-08-25 10:24] LABS: APPEARANCE,URINE SLIGHTLY CLOUDY (CLEAR); BLOOD, URINE 1+ Ery/uL (NEGATIVE); LEUKOCYTE ESTERASE ,URINE 3+ (NEGATIVE); NITRITE, URINE NEGATIVE (NEGATIVE); UGLUCOSE NEGATIVE (NEGATIVE)
[2024-08-25 11:28] LABS: ADD URINE CULTURE YES; SQUAMOUS EPITHELIAL CELL,UR Few /HPF (None Seen)
[2024-08-25 12:00] VITALS: BP 163/102; TEMP 98.2
[2024-08-25] MEDS ORDERED: ONDANSETRON HCL/PF 4 MG/2 ML VIAL IVP PRN (12:30)
[2024-08-25 13:03] VITALS: BP 140/89; TEMP 98; O2SAT 97
[2024-08-25 13:04] LABS: IRON, SERUM 54 ug/dl (50-175)
[2024-08-25] MEDS: IV D5/0.45 NACL 1,000 ML IV PRN (13:44)
[2024-08-25 16:00] VITALS: BP 155/85; TEMP 98.2; O2SAT 95
[2024-08-25 20:00] VITALS: BP 126/79; TEMP 97.6; O2SAT 94
[2024-08-26 07:04] LABS: PLATELET COUNT (AUTO) 234 K/uL (150-450); RED BLOOD CELL COUNT(AUTO) 4.41 MIL/uL (4.0-5.2); RED CELL DISTRIBUTION WIDTH 14.8 % (11.5-15.0); WHITE BLOOD COUNT (AUTO) 8.4 K/uL (4.3-11.0)
[2024-08-26 07:07] LABS: CALCIUM, SERUM 8.8 mg/dL (8.5-10.1); CREATININE 1.0 mg/dL (0.6-1.3); PHOSPHORUS 3.4 mg/dL (2.5-4.9); SODIUM SERUM 146.0 mmol/L (136-145); UREA NITROGEN, BLOOD 37.0 mg/dL (7-18)
[2024-08-26 07:56] LABS: INR 1.01 (0.91-1.10)
[2024-08-26 08:17] VITALS: BP 142/90; TEMP 97.9; O2SAT 95
[2024-08-26] MEDS: PANTOPRAZOLE 40 MG VIAL IV SCH ×2 (09:19→12:00)
[2024-08-26] MEDS ORDERED: LEVO75TA7 GT (09:20)
[2024-08-26] MEDS ORDERED: PANT40SU2 GT (09:20)
[2024-08-26] MEDS ORDERED: METO25TA6 GT (09:20)
[2024-08-26] MEDS ORDERED: ONDA-97 GT (09:20)
[2024-08-26] MEDS ORDERED: LIOT5TAB7 GT (09:20)
[2024-08-26] MEDS ORDERED: QUET25TA GT (09:20)
[2024-08-26] MEDS ORDERED: CALC-494 GT (09:20)
[2024-08-26] MEDS ORDERED: JEVITY 1.5 CAL LIQUID 1,000 ML BOTTLE GT PRN (12:30)
[2024-08-26] MEDS: JEVITY 1.2 CAL 1,000 ML BOTTLE GT PRN (12:42)
[2024-08-26 16:00] VITALS: BP 140/89; TEMP 98.1; O2SAT 95
[2024-08-27 08:17] VITALS: BP 142/74; TEMP 97.6; O2SAT 93
[2024-08-27] MEDS: PANTOPRAZOLE 40 MG/PACK PACK GT SCH (08:44)
[2024-08-27 09:58] LABS: PLATELET COUNT (AUTO) 251 K/uL (150-450); RED BLOOD CELL COUNT(AUTO) 4.40 MIL/uL (4.0-5.2); RED CELL DISTRIBUTION WIDTH 14.8 % (11.5-15.0); WHITE BLOOD COUNT (AUTO) 8.2 K/uL (4.3-11.0)
[2024-08-27 10:38] LABS: ASPARTATE AMINOTRANSFERASE 29.0 U/L (15-37); CALCIUM, SERUM 8.6 mg/dL (8.5-10.1); CREATININE 0.8 mg/dL (0.6-1.3); PHOSPHORUS 2.9 mg/dL (2.5-4.9); SODIUM SERUM 151.0 mmol/L (136-145); TOTAL PROTEIN, SERUM 7.5 g/dL (6.4-8.2); UREA NITROGEN, BLOOD 50.0 mg/dL (7-18)
[2024-08-27 16:33] VITALS: BP 154/96; TEMP 97.5; O2SAT 97
[2024-08-27 19:50] LABS: CREATININE, URINE 63.4 MG/DL (30.0-125.0); URINE SODIUM, RANDOM 60.0 mmol/l (40-220); URINE TOTAL PROTEIN 149.9 mg/dL (0-11.9)
[2024-08-27 20:42] VITALS: BP 132/99; TEMP 98.4; O2SAT 95
[2024-08-27] MEDS: MUPIROCIN OINT 2% 22 GM TUBE NS SCH (21:20)
[2024-08-28 07:12] LABS: PLATELET COUNT (AUTO) 270 K/uL (150-450); RED BLOOD CELL COUNT(AUTO) 4.36 MIL/uL (4.0-5.2); RED CELL DISTRIBUTION WIDTH 14.8 % (11.5-15.0); WHITE BLOOD COUNT (AUTO) 9.7 K/uL (4.3-11.0)
[2024-08-28 07:30] VITALS: BP 160/98; TEMP 98.6; O2SAT 95
[2024-08-28 07:33] LABS: ASPARTATE AMINOTRANSFERASE 13.0 U/L (15-37); CALCIUM, SERUM 8.7 mg/dL (8.5-10.1); CREATININE 0.8 mg/dL (0.6-1.3); PHOSPHORUS 2.9 mg/dL (2.5-4.9); SODIUM SERUM 153.0 mmol/L (136-145); TOTAL PROTEIN, SERUM 7.4 g/dL (6.4-8.2); UREA NITROGEN, BLOOD 44.0 mg/dL (7-18)
[2024-08-28 07:34] LABS: CREATINE KINASE, TOTAL 37.0 U/L (26-192)
[2024-08-28 16:00] VITALS: BP_SYST 147; BP_SYST 97; BP_DIAS 58; BP_DIAS 89; TEMP 98.1; TEMP 99.9; O2SAT 94; O2SAT 98
[2024-08-28 20:00] VITALS: BP 140/97; TEMP 98.4; O2SAT 97
[2024-08-29 04:06] LABS: PTH, INTACT 26 pg/mL (15-65)
[2024-08-29 06:37] LABS: APPEARANCE,URINE CLOUDY (CLEAR); BLOOD, URINE 1+ Ery/uL (NEGATIVE); LEUKOCYTE ESTERASE ,URINE 3+ (NEGATIVE); NITRITE, URINE NEGATIVE (NEGATIVE); UGLUCOSE NEGATIVE (NEGATIVE)
[2024-08-29] MEDS ORDERED: PANT40SU2 GT (07:02)
[2024-08-29] MEDS ORDERED: AMOX-430 PO (07:05)
[2024-08-29 07:07] LABS: ADD URINE CULTURE YES; SQUAMOUS EPITHELIAL CELL,UR Rare /HPF (None Seen); TRIPLE PHOSPHATE CRYSTAL,UR Rare /HPF (None Seen)
[2024-08-29 07:30] VITALS: BP 136/96; TEMP 98.2; O2SAT 96
[2024-08-29] MEDS ORDERED: IV D5W 1,000 ML IV PRN (07:30)
[2024-08-29] MEDS: AMOX/CLAVULANATE 875 MG TABLET PO SCH (08:03)
== END 2024-08-29 12:08 | DRG 380 ==
LOC: ER 08:54 → MED 10:37
PROVIDERS: ATTEND Internal Medicine
PROC: 0DJ08ZZ Inspection of Upper Intestinal Tract, Via Natural or Artificial Opening Endoscopic (ICD-10-PCS; principal; 2024-08-26 10:40)
DX: K22.11 Ulcer of esophagus with bleeding (principal); E43 Unspecified severe protein-calorie malnutrition; N32.1 Vesicointestinal fistula; E87.0 Hyperosmolality and hypernatremia; F03.93 Unspecified dementia, unspecified severity, with mood disturbance; G93.49 Other encephalopathy; N17.9 Acute kidney failure, unspecified; N13.6 Pyonephrosis; Z16.12 Extended spectrum beta lactamase (ESBL) resistance; K22.2 Esophageal obstruction; Z87.11 Personal history of peptic ulcer disease; E03.9 Hypothyroidism, unspecified; F31.9 Bipolar disorder, unspecified; E86.0 Dehydration; D64.9 Anemia, unspecified; J44.9 Chronic obstructive pulmonary disease, unspecified; K44.9 Diaphragmatic hernia without obstruction or gangrene; B96.20 Unspecified Escherichia coli [E. coli] as the cause of diseases classified elsewhere; Z93.3 Colostomy status; Z79.899 Other long term (current) drug therapy; N18.9 Chronic kidney disease, unspecified; I12.9 Hypertensive chronic kidney disease with stage 1 through stage 4 chronic kidney disease, or unspecified chronic kidney disease; Z90.49 Acquired absence of other specified parts of digestive tract; Z93.1 Gastrostomy status; Z68.24 Body mass index [BMI] 24.0-24.9, adult
CPT/HCPCS: 36415; 71045-TC; 76770-TC; 80048-TC; 80053-TC; 80076-TC; 81001; 82550-TC; 82570-TC; 82962-TC; 83540-TC; 83690-TC; 83735-TC; 83970; 84100-TC; 84155; 84165; 84300-TC; 84484-TC; 85025-TC; 85610-TC; 85730-TC; 86850-TC; 87081-TC; 87086-TC; 87186-TC; A4223; G0378; J2405; J2470; J2704; J3490; J7030; J7040

== ENCOUNTER 2024-12-31 13:50 | Inpatient (IN) | payer MEDICARE, OTHER ==
[~2024-12-31] VITALS: Ht 162.6 cm; Wt 60.8 kg
[~2024-12-31 13:50] MED LIST changes: +AMOX-430 PO; +CALC-494 GT; -CALC500T63 GT; -GENT5DRO4 EACHEYE; -LEVO100T9 GT; +LEVO75TA7 GT; -METO25TA20 GT; +METO25TA6 GT; -MULT-24 GT; +ONDA-97 GT; -OXYC5TAB3 GT; +QUET25TA GT
[2024-12-31] MEDS ORDERED: ONDANSETRON HCL/PF 4 MG/2 ML VIAL ONE (14:23)
[2024-12-31] MEDS ORDERED: MULT-594 GT (14:40)
[2024-12-31] MEDS: IV NS 0.9% 1,000 ML BAG IV ONE (14:52)
[2024-12-31] MEDS: PANTOPRAZOLE 80 MG in IV NS 0.9% 100 ML IV ONE (14:54)
[2024-12-31] MEDS: ONDANSETRON HCL/PF 4 MG/2 ML VIAL IVP ONE (14:54)
[2024-12-31] MEDS: PANTOPRAZOLE 80 MG in IV NS 0.9% 500 ML IV ONE (15:30)
[2024-12-31 15:31] LABS: PLATELET COUNT (AUTO) 283 K/uL (150-450); RED BLOOD CELL COUNT(AUTO) 3.98 MIL/uL (4.0-5.2); RED CELL DISTRIBUTION WIDTH 14.7 % (11.5-15.0); WHITE BLOOD COUNT (AUTO) 11.4 K/uL (4.3-11.0)
[2024-12-31 15:41] LABS: CALCIUM, SERUM 7.7 mg/dL (8.5-10.1); CREATININE 0.9 mg/dL (0.6-1.3); SODIUM SERUM 138 mmol/L (136-145); UREA NITROGEN, BLOOD 65 mg/dL (7-18)
[2024-12-31 15:45] LABS: ASPARTATE AMINOTRANSFERASE 12 U/L (15-37); TOTAL PROTEIN, SERUM 6.1 g/dL (6.4-8.2)
[2024-12-31 15:56] LABS: INR 1.06 (0.91-1.10)
[2024-12-31] MEDS ORDERED: IV NS 0.9% 1,000 ML IV PRN (18:30)
[2024-12-31] MEDS ORDERED: ACETAMINOPHEN 325 MG TABLET MC PRN (18:30)
[2024-12-31] MEDS ORDERED: ONDANSETRON HCL/PF 4 MG/2 ML VIAL IVP PRN (18:30)
[2024-12-31] MEDS ORDERED: JEVITY 1.5 CAL LIQUID 1,000 ML BOTTLE GT SCH (18:30)
[2024-12-31] MEDS ORDERED: MAGNESIUM HYDROXIDE 30 ML UDC PO PRN (18:30)
[2024-12-31] MEDS ORDERED: NA PHOS,M-B/NA PHOS,DI-BA 1 EA ENEMA RC PRN (18:30)
[2024-12-31] MEDS ORDERED: BISACODYL SUPP (10 MG) 10 MG/SUPP.RECT SUPP.RECT RC PRN (18:30)
[2024-12-31] MEDS ORDERED: ACETAMINOPHEN 325 MG TABLET PO PRN (18:30)
[2024-12-31] MEDS ORDERED: Z GUARD REMEDY 4 OZ OINT TP PRN (18:30)
[2024-12-31 20:00] VITALS: BP 107/67; TEMP 97.9; O2SAT 96
[2024-12-31] MEDS: QUETIAPINE FUMARATE 25 MG TABLET GT SCH (22:00)
[2025-01-01] VITALS: BP 109/92; TEMP 98.2; O2SAT 97
[2025-01-01 04:00] VITALS: BP 118/73; TEMP 98.2; O2SAT 95
[2025-01-01 06:15] LABS: CALCIUM, SERUM 8.2 mg/dL (8.5-10.1); CREATININE 1.0 mg/dL (0.6-1.3); PHOSPHORUS 2.4 mg/dL (2.5-4.9); SODIUM SERUM 146.0 mmol/L (136-145); UREA NITROGEN, BLOOD 56.0 mg/dL (7-18)
[2025-01-01 06:16] LABS: PLATELET COUNT (AUTO) 238 K/uL (150-450); RED BLOOD CELL COUNT(AUTO) 3.52 MIL/uL (4.0-5.2); RED CELL DISTRIBUTION WIDTH 14.6 % (11.5-15.0); WHITE BLOOD COUNT (AUTO) 7.9 K/uL (4.3-11.0)
[2025-01-01 07:00] VITALS: BP 105/88; TEMP 97.3; O2SAT 94
[2025-01-01] MEDS: LEVOTHYROXINE SODIUM 75 MCG TABLET GT SCH (07:30)
[2025-01-01] MEDS: METOPROLOL TARTRATE 25 MG TABLET GT SCH (08:27)
[2025-01-01] MEDS: LIOTHYRONINE SODIUM (5 MCG/TA 5 MCG TABLET GT SCH (08:27)
[2025-01-01] MEDS: FERROUS SULFATE UDC 300 MG/5 ML UDC GT SCH (08:27)
[2025-01-01] MEDS: PANTOPRAZOLE 40 MG VIAL IV SCH (08:29)
[2025-01-01] MEDS: IV 1/2NS 1000 ML 1,000 ML IV SCH (10:36)
[2025-01-01 11:30] VITALS: BP 131/80; TEMP 97.3; O2SAT 96
[2025-01-01] MEDS ORDERED: PANT40SU2 GT (13:23)
[2025-01-01 16:00] VITALS: BP 114/71; TEMP 97.3; O2SAT 96
[2025-01-01] MEDS ORDERED: JEVITY 1.5 CAL LIQUID 1,000 ML BOTTLE GT PRN (16:30)
[2025-01-01] MEDS: Sodium Phosphate 15 MMOL in IV NS 0.9% 245 ML IV SCH (16:39)
[2025-01-01] MEDS: DOCUSATE SODIUM 100 MG CAPSULE PO SCH (17:15)
[2025-01-01] MEDS: MAGNESIUM OXIDE 400 MG TABLET GT SCH (17:16)
[2025-01-01] MEDS: JEVITY 1.2 CAL 1,000 ML BOTTLE GT PRN (17:30)
== END 2025-01-01 20:20 | DRG 641 ==
LOC: ER 13:58 → TELE 15:50
PROVIDERS: ADMIT Nurse Practitioner Acute Care; ATTEND Nurse Practitioner Acute Care
DX: E86.0 Dehydration (principal); E87.0 Hyperosmolality and hypernatremia; K57.32 Diverticulitis of large intestine without perforation or abscess without bleeding; J44.9 Chronic obstructive pulmonary disease, unspecified; E03.9 Hypothyroidism, unspecified; I10 Essential (primary) hypertension; F03.90 Unspecified dementia, unspecified severity, without behavioral disturbance, psychotic disturbance, mood disturbance, and anxiety; F31.9 Bipolar disorder, unspecified; N17.9 Acute kidney failure, unspecified; R13.10 Dysphagia, unspecified; D72.829 Elevated white blood cell count, unspecified; Z93.3 Colostomy status; K21.9 Gastro-esophageal reflux disease without esophagitis; Z93.1 Gastrostomy status; E83.89 Other disorders of mineral metabolism
CPT/HCPCS: 36415; 71045-TC; 80048-TC; 80076-TC; 83690-TC; 83735-TC; 84100-TC; 84484-TC; 85025-TC; 85730-TC; 86850-TC; 87081-TC; A4223; A9563; G0378; J2405; J2470; J3490; J7030; J7050